=== PATIENT | female | born 1975 | race American Indian/Alaskan Native ===

== ENCOUNTER 2017-08-13 20:12 | Inpatient (IN) | payer OTHER ==
[2017-08-13] MEDS ORDERED: ASPIRIN PO ONE (20:22)
[2017-08-13 20:40] LABS: Hemoglobin 6.5 gm/dl (10.1-14.3); Mean Corpuscular HGB Conc 34 % (30-34); Mean Corpuscular Hemoglobin 34 pg (28-32); Mean Corpuscular Volume 102 fl (79-97); Platelet Count 133 K/mm3 (140-440)
[2017-08-13 20:44] LABS: Hematocrit 19.4 % (30.3-42.9); Red Cell Distribution Width 32.5 % (13.2-15.2)
[2017-08-13 20:52] LABS: BUN/Creatinine Ratio 9; Blood Urea Nitrogen 13 mg/dL (7-17); Calcium 7.9 mg/dL (8.4-10.2); Hemolysis Index 0
[2017-08-13] MEDS ORDERED: NACL 0.9% 500 ML 500 ML IV ONE (21:03)
--- NOTE | 2017-08-13 21:13 | Emergency Department Report ---
ED General Adult HPI - General Chief complaint: Dizziness Stated complaint: DIZZY,CHEST PAIN Time Seen by Provider: 08/13/17 20:51 Source: patient Mode of arrival: Ambulatory Limitations: No Limitations - History of Present Illness Initial comments: This is a 42-year-old female with history of alcohol use disorder who reports being dizzy and having syncopal episodes for the past several months. She also states that she feels very tired now and her friend noted that her eyes were very yellow and she has had dark urine and back pain. She admits to some nausea and vomiting but there is no blood in her vomitus. She states that she has a history of pancreatitis and hypertension. She also then reports that she has some chest pain as well. She admits to drinking alcohol today as well. -: month(s) (3 months) Location: abdomen Radiation: non-radiation Quality: aching Consistency: constant Improves with: none Worsens with: none - Related Data Home Medications Medication Instructions Recorded Confirmed Last Taken Lisinopril 40 mg PO DAILY 08/13/17 08/13/17 Unknown Allergies Allergy/AdvReac Type Severity Reaction Status Date / Time No Known Allergies Allergy Unverified 08/13/17 20:16 ED Review of Systems ROS: Stated complaint: DIZZY,CHEST PAIN Other details as noted in HPI Comment: All other systems reviewed and negative Constitutional: see HPI Eyes: as per HPI, other (jaundiced) ENT: as per HPI Respiratory: see HPI Cardiovascular: as per HPI Endocrine: see HPI Gastrointestinal: as per HPI Genitourinary: as per HPI Musculoskeletal: as per HPI Skin: as per HPI Neurological: as per HPI Psychiatric: as per HPI Hematological/Lymphatic: as per HPI ED Past Medical Hx - Past Medical History Hx Hypertension: Yes Additional medical history: Pancreatitis - Surgical History Additional Surgical History: tube tied, c sect - Social History Smoking Status: Current Every Day Smoker Substance Use Type: Alcohol - Medications Home Medications: Home Medications Medication Instructions Recorded Confirmed Last Taken Type Lisinopril 40 mg PO DAILY 08/13/17 08/13/17 Unknown History ED Physical Exam - General Limitations: No Limitations General appearance: alert, in distress - Head Head exam: Present: atraumatic - Eye Eye exam: Present: scleral icterus Pupils: Present: normal accommodation - Neck Neck exam: Present: normal inspection - Respiratory Respiratory exam: Present: normal lung sounds bilaterally. Absent: respiratory distress, wheezes, rales, rhonchi - Cardiovascular Cardiovascular Exam: Present: tachycardia, normal heart sounds - GI/Abdominal GI/Abdominal exam: Present: soft, tenderness (generalized mild), normal bowel sounds. Absent: guarding, rebound, rigid - Rectal Rectal exam: Present: deferred - Extremities Exam Extremities exam: Present: normal inspection. Absent: pedal edema - Back Exam Back exam: Present: normal inspection - Neurological Exam Neurological exam: Present: alert, oriented X3, CN II-XII intact - Psychiatric Psychiatric exam: Present: anxious - Skin Skin exam: Present: warm, dry, intact ED Course Vital Signs 08/13/17 08/13/17 08/13/17 20:16 22:36 23:38 Temperature 97.7 F 98.4 F 98.8 F Pulse Rate 106 H 80 82 Respiratory 16 20 20 Rate Blood Pressure 116/69 107/69 Blood Pressure 98/68 [Right] O2 Sat by Pulse 97 100 100 Oximetry 08/13/17 08/13/17 23:49 23:53 Temperature 98.8 F 98.8 F Pulse Rate 87 87 Respiratory 20 20 Rate Blood Pressure 99/64 99/64 Blood Pressure [Right] O2 Sat by Pulse 96 96 Oximetry - Reevaluation(s) Reevaluation #1: 08/13/17 22:24 The patient will require blood transfusion due to her hemoglobin is 6.4. Alcohol level was also elevated. In her urine drug screen cocaine and marijuana as positive. She has significant scleral icterus. Her LFTs are also elevated. The ammonia level is also elevated. T bilirubin is also elevated. Amylase lipase are currently pending. CT scan of the abdomen and pelvis has been done however the results are pending at this time. I did speak to the hospitalist and we will need to admit the patient. We also will go ahead and type and screen and transfused 2 units of packed RBCs into the patient. 08/13/17 22:26 08/14/17 00:[address] scan of the abdomen and pelvis does reveal acute on chronic pancreatitis , a large 3 cm in diameter gallstone nearly obstructing the gallbladder lumen, as well as a hepatic cyst, and likely chronic appendicitis with no acute process or inflammatory changes noted at this time but visualization of the appendix is suboptimal. Chronic pancreatitis is likely due to the chronic alcohol use disorder that the patient suffers from. With regards to her significant anemia, there does not appear to be insofar as we can tell at this point a gastrointestinal cause for her anemia. I discussed the case with the hospitalist, surgery will need to be consult to, the patient is currently receiving blood in the ER, and we will need to admit the patient to the hospital. ED Medical Decision Making - Lab Data Result diagrams: 08/13/17 20:27 08/13/17 20:27 Critical care attestation.: If time is entered above; I have spent that time in minutes in the direct care of this critically ill patient, excluding procedure time. ED Disposition Clinical Impression: Hepatitis, Polysubstance abuse, Jaundice, Hyperammonemia Anemia Qualifiers: Anemia type: other cause Other causes of anemia: other cause, not classified Qualified Code(s): D64.89 - Other specified anemias Liver failure Qualifiers: Liver failure chronicity: acute Hepatic coma status: without hepatic coma Qualified Code(s): K72.00 - Acute and subacute hepatic failure without coma Alcohol intoxication Qualifiers: Complication of substance-induced condition: with unspecified complication Qualified Code(s): F10.929 - Alcohol use, unspecified with intoxication, unspecified Pancreatitis Qualifiers: Chronicity: acute Pancreatitis type: alcohol induced Acute pancreatitis complication: unspecified Qualified Code(s): K85.20 - Alcohol induced acute pancreatitis without necrosis or infection Disposition: OP ADMIT IP TO THIS HOSP Is pt being admited?: Yes Does the pt Need Aspirin: No Condition: Stable Referrals: LORNE THOMAS MD [Primary Care Provider] - 3-5 Days
[2017-08-13 21:35] LABS: Amorphous Crystals,Urine Few; Bacteria,Urine 2+ /HPF (Negative); Bilirubin,Urine MOD (Negative); Blood,Urine NEG (Negative); Color,Urine Amber (Yellow); Mucus,Urine FEW /HPF; Protein,Urine <15 mg/dL mg/dL (Negative)
[2017-08-13 21:38] LABS: Ictotest,Urine Positive (Negative)
[2017-08-13 21:41] LABS: Amphetamine Screen,Urine PRESUMPTIVE NEGATIVE; Benzodiazepines Screen,Urine PRESUMPTIVE NEGATIVE; Methadone Screen,Urine PRESUMPTIVE NEGATIVE; Opiate Screen,Urine PRESUMPTIVE NEGATIVE
[2017-08-13 21:49] LABS: Albumin 2.1 g/dL (3.9-5)
[2017-08-13 21:52] LABS: Cannabinoid Screen,Urine PRESUMPTIVE POSITIVE; Cocaine Screen,Urine PRESUMPTIVE POSITIVE
[2017-08-13 22:05] LABS: Bilirubin,Direct 13.2 mg/dL (0-0.2)
[2017-08-13 22:49] LABS: Total Cells Counted 100
[2017-08-13 22:50] LABS: Anisocytosis 1+; Basophils % (Manual) 0 % (0.0-1.8); Hypochromasia 1+; Lipase 8 units/L (13-60); Macrocytosis 1+; Target Cells 1+
[2017-08-13 22:51] LABS: Platelet Estimate Consistent w Auto
[2017-08-13] MEDS ORDERED: ZOFRAN IV ONE (22:59)
[2017-08-13] MEDS ORDERED: MORPHINE IV ONE (22:59)
[2017-08-13 23:00] LABS: Hepatitis A Antibody IgM Non-Reactive (NonReactive); Hepatitis B Core IgM Non-Reactive (NonReactive); Hepatitis B Surface Antigen Non-Reactive (Negative); Hepatitis C Virus Antibody Non-Reactive (NonReactive)
[2017-08-13] MEDS ORDERED: ATIVAN IV ONE (23:02)
--- NOTE | 2017-08-13 23:26 | Cat Scan Report ---
FINAL REPORT PROCEDURE: CT ABDOMEN PELVIS WO CON TECHNIQUE: Computerized axial tomography of the abdomen and pelvis was performed without intravenous contrast. This study is performed without intravascular contrast material and its sensitivity for abdominal and pelvic pathology, including neoplasms, inflammation, abscess, free fluid, thrombosis, arterial dissection and infarction, is reduced compared with a contrast enhanced study. HISTORY: abd pain. nausea, vomiting, pancreatitis, etoh use COMPARISON: No prior studies are available for comparison. FINDINGS: Lower Lung bright: There is a vertically-oriented band of atelectasis in the right middle lobe anteriorly inferiorly and also in the lingula inferiorly anteriorly. Upper Abdomen: There is a large gallstone nearly filling the lumen of the gallbladder measuring up to 3 centimeters in greatest diameter. Gallbladder is otherwise unremarkable. There is a 2.8 centimeter low-density nodule in the right lobe of the liver superiorly laterally which appears represent a large hepatic cyst. The liver is otherwise unremarkable. No adrenal abnormalities are seen. Coarse calcifications are seen throughout the head body and tail the pancreas consistent with chronic pancreatitis. No pancreatic mass or pseudocyst is visualized. There is mild hazy increased density in the adipose tissue inferior to the pancreas suggesting edema related to acute pancreatitis. No pseudocyst is visualized. The spleen is not enlarged. Kidneys, Ureters and Urinary bladder: Kidneys ureters are unremarkable. Urinary bladder is only partially filled otherwise is unremarkable. Retroperitoneum: Atherosclerotic changes are seen in the abdominal aorta. No aneurysm is visualized. Nonspecific subcentimeter lymph nodes are seen in the retroperitoneum. No pathologically enlarged lymph nodes are identified. Bowel: No focal bowel loop abnormalities are identified. No evidence of bowel obstruction or free intraperitoneal gas. Small amount of ascites is collected in the lower pelvis posteriorly on the right. The appendix is suboptimally seen although appears to be located in the right mid pelvis laterally on image 137 series 3. An appendicolith appears to be present. This measures up to 8.5 millimeters in diameter. Small amount of ascites is collected in the lower pelvis on the right. Reproductive organs: Uterus and adnexa are unremarkable. Other: No acute bone abnormalities are identified. IMPRESSION: Very large gallstone nearly filling the gallbladder visualized as described. Large hepatic cyst is visualized. Extensive coarse calcifications project throughout the pancreas consistent with chronic pancreatitis. There is mild hazy increased density in the adipose tissue inferior to the pancreas suggesting edema related to acute pancreatitis. No pseudocyst is visualized. Small amount of ascites visualized, located in the lower pelvis posteriorly on the right. The appendix is suboptimally seen. There is an appendicolith visualized in the right mid pelvis laterally as within the lumen of the appendix. No definite inflammatory change seen in the appendix however the diameter is greater than expected for normal appendix. This may represent chronic appendicitis. Abscess and free air are not visualized.
[2017-08-14] MEDS ORDERED: MORPHINE IV PRN ×2 (00:53→15:28)
[2017-08-14] MEDS ORDERED: ZOFRAN IV PRN (00:53)
[2017-08-14] MEDS ORDERED: SODIUM CHLORIDE FLUSH SYRINGE 10 ML IV PRN (00:53)
[2017-08-14] MEDS ORDERED: TYLENOL PO PRN (00:53)
[2017-08-14 01:03] LABS: INR 1.33 (0.87-1.13)
[2017-08-14] MEDS ORDERED: ATIVAN IV PRN ×2 (01:03)
[2017-08-14 01:04] LABS: Partial Thromboplastin Time 38.3 Sec. (24.2-36.6)
--- NOTE | 2017-08-14 01:04 | History and Physical Report ---
History of Present Illness Date of examination: 08/14/17 History of present illness: 42-year-old woman with a history of high blood pressure, pancreatitis, alcohol abuse comes emergency room because her friend brought her here because her eyes and been yellow for the last 4 days. She also complains of abdominal pain which she described as pinching sensation, intermittent in nature, on the right cell along the last 4, radiating to the back, intensity 10/10, on relief with Tylenol. She noticed that her urine was dark when she arrived in the emergency room. Also complaining of dizziness, feeling tired. No chest pain Review of systems Constitutional: no weight loss, chills Ears, eyes, nose, mouth and throat: no nasal congestion, no nasal discharge, no sinus pressure, no vision change, no red eye. Neck: No neck pain or rigidity. Cardiovascular: no chest pain, palpitations Respiratory: No cough, shortness of breath Gastrointestinal: no hematochezia Genitourinary : no dysuria, frequency , no hematuria Musculoskeletal: no joint swelling or muscle ache Integumentary: no rash, no pruritis Neurological: no parathesias, no numbness, no focal weakness Endocrine: no cold or heat intolerance, no polyuria or polydipsia Hematologic/Lymphatic: no easy bruising, no easy bleeding, no gland swelling Allergic/Immunologic: no urticaria, no angioedema. PAST MEDICAL HISTORY: Hypertension, pancreatitis, alcohol abuse PAST SURGICAL HISTORY: SOCIAL HISTORY:She has cut down on drinking, no drink 1 beer a day, smoke quarter pack a day denies drugs FAMILY HISTORY: Hypertension Medications and Allergies Allergies Allergy/AdvReac Type Severity Reaction Status Date / Time No Known Allergies Allergy Unverified 08/13/17 20:16 Home Medications Medication Instructions Recorded Confirmed Last Taken Type Lisinopril 40 mg PO DAILY 08/13/17 08/13/17 Unknown History Active Meds: Active Medications Acetaminophen (Tylenol) 650 mg PO Q4H PRN PRN Reason: Pain MILD(1-3)/Fever >100.5/CARDENAS Sodium Chloride (Nacl 0.45% 1000 Ml) 1,000 mls @ 150 mls/hr IV DIRECT HARRIETT Morphine Sulfate (Morphine) 2 mg IV Q4H PRN PRN Reason: Pain, Moderate (4-6) Ondansetron HCl (Zofran) 4 mg IV Q4H PRN PRN Reason: Nausea And Vomiting Sodium Chloride (Sodium Chloride Flush Syringe 10 Ml) 10 ml IV BID HARRIETT Sodium Chloride (Sodium Chloride Flush Syringe 10 Ml) 10 ml IV PRN PRN PRN Reason: LINE FLUSH Exam - Physical Exam Narrative exam: Gen. appearance: Patient lying in bed, no apparent distress HEENT: Normocephalic, atraumatic, pupils equally round and reactive to light, extraocular movement intact, and no sclericterus,. No JVD or thyromegaly or nodule,neck supple, no carotid bruit ,mucous membranes moist, no exudate or erythema Heart: S1, S2, regular rate and rhythm Lungs: Clear to auscultation bilaterally, breathing comfortable Abdomen: Positive bowel sounds, tender in the epigastric area, nondistended, no organomegaly Extremity: No edema, cyanosis, clubbing Skin: No rash, nodules, warm, dry Neuro: Oriented 3, cranial nerves II-12 intact, speech is fluent, motor and sensory intact - Constitutional Vitals: Temp Pulse Resp BP Pulse Ox 98.6 F 85 22 93/60 98 08/14/17 00:23 08/14/17 00:23 08/14/17 00:23 08/14/17 00:23 08/14/17 00:23 Results - Labs CBC & Chem 7: 08/13/17 20:27 08/13/17 20:27 Labs: Abnormal lab results 08/13/17 08/13/17 08/13/17 Range/Units 20:27 20:27 20:27 RBC 1.90 L (3.65-5.03) M/mm3 Hgb 6.5 L (10.1-14.3) gm/dl Hct 19.4 L* (30.3-42.9) % MCV 102 H (79-97) fl MCH 34 H (28-32) pg RDW 32.5 H (13.2-15.2) % Plt Count 133 L (140-440) K/mm3 PT (12.2-14.9) Sec. INR (0.87-1.13) APTT (24.2-36.6) Sec. Sodium 136 L (137-145) mmol/L Carbon Dioxide 21 L (22-30) mmol/L Creatinine 1.5 H (0.7-1.2) mg/dL Glucose 125 H (65-100) mg/dL Calcium 7.9 L (8.4-10.2) mg/dL Total Bilirubin (0.1-1.2) mg/dL Direct Bilirubin (0-0.2) mg/dL AST (5-40) units/L ALT (7-56) units/L Alkaline Phosphatase (35-129) units/L Ammonia (25-60) umol/L Total Protein (6.3-8.2) g/dL Albumin (3.9-5) g/dL Lipase 8 L (13-60) units/L Plasma/Serum Alcohol (0-0.07) % Crossmatch 08/13/17 08/13/17 08/13/17 Range/Units 21:06 21:06 21:13 RBC (3.65-5.03) M/mm3 Hgb (10.1-14.3) gm/dl Hct (30.3-42.9) % MCV (79-97) fl MCH (28-32) pg RDW (13.2-15.2) % Plt Count (140-440) K/mm3 PT (12.2-14.9) Sec. INR (0.87-1.13) APTT (24.2-36.6) Sec. Sodium (137-145) mmol/L Carbon Dioxide (22-30) mmol/L Creatinine (0.7-1.2) mg/dL Glucose (65-100) mg/dL Calcium (8.4-10.2) mg/dL Total Bilirubin 18.90 H (0.1-1.2) mg/dL Direct Bilirubin 13.2 H (0-0.2) mg/dL AST 169 H (5-40) units/L ALT 77 H (7-56) units/L Alkaline Phosphatase 326 H (35-129) units/L Ammonia 77.0 H (25-60) umol/L Total Protein 5.7 L (6.3-8.2) g/dL Albumin 2.1 L (3.9-5) g/dL Lipase (13-60) units/L Plasma/Serum Alcohol (0-0.07) % Crossmatch See Detail 08/13/17 08/14/17 Range/Units 21:13 00:36 RBC (3.65-5.03) M/mm3 Hgb (10.1-14.3) gm/dl Hct (30.3-42.9) % MCV (79-97) fl MCH (28-32) pg RDW (13.2-15.2) % Plt Count (140-440) K/mm3 PT 17.2 H (12.2-14.9) Sec. INR 1.33 H (0.87-1.13) APTT 38.3 H (24.2-36.6) Sec. Sodium (137-145) mmol/L Carbon Dioxide (22-30) mmol/L Creatinine (0.7-1.2) mg/dL Glucose (65-100) mg/dL Calcium (8.4-10.2) mg/dL Total Bilirubin (0.1-1.2) mg/dL Direct Bilirubin (0-0.2) mg/dL AST (5-40) units/L ALT (7-56) units/L Alkaline Phosphatase (35-129) units/L Ammonia (25-60) umol/L Total Protein (6.3-8.2) g/dL Albumin (3.9-5) g/dL Lipase (13-60) units/L Plasma/Serum Alcohol 0.11 H (0-0.07) % Crossmatch - Imaging and Cardiology CT scan - abdomen: report reviewed CT scan - pelvis: report reviewed Assessment and Plan Assessment Gallstone Hyperbilirubinemia Symptomatic anemia Alcohol abuse Thrombocytopenia Plan Admit to medicine Start IV fluids, transfuse packed red blood cells Consults surgery, GI, case discussed with them Check hepatitis profile, fecal occult blood Obtain MRCP Start CIWA protocol with IV Ativan DVT prophylaxis
[2017-08-14 08:51] LABS: Creatine Kinase MB 2.1 ng/mL (0.0-4.0)
[2017-08-14] MEDS ORDERED: LOVENOX SUB-Q SCH (10:00)
[2017-08-14] MEDS: SODIUM CHLORIDE FLUSH SYRINGE 10 ML IV SCH ×2 (10:14→21:56)
--- NOTE | 2017-08-14 11:49 | Progress Note ---
Assessment and Plan Assessment and plan: Patient is a 42 yo woman with a history of htn and alcohol abuse with pancreatitis who presented to the ED with ams, syncope, dizziness, abd pains and yellow eyes. She was found to have etoh level of 0.11 and urine drug screen positive for cocaine and marijuana. CT abd/pelvis wo contrast IMPRESSION: Very large gallstone nearly filling the gallbladder visualized as described. Large hepatic cyst is visualized. Extensive coarse calcifications project throughout the pancreas consistent with chronic pancreatitis. There is mild hazy increased density in the adipose tissue inferior to the pancreas suggesting edema related to acute pancreatitis. No pseudocyst is visualized. Small amount of ascites visualized, located in the lower pelvis posteriorly on the right. The appendix is suboptimally seen. There is an appendicolith visualized in the right mid pelvis laterally as within the lumen of the appendix. No definite inflammatory change seen in the appendix however the diameter is greater than expected for normal appendix. This may represent chronic appendicitis. Abscess and free air are not visualized. Assessment -Acute toxic metabolic encephalopathy poa due to etoh: treat with CIWA -Gallstone: consulted GI -Hyperbilirubinemia: surgery already consulted -Symptomatic Acute anemia due to chronic liver disease: transfuse prbc -Alcohol abuse" counseling done, treat with CIWA protocol -Thrombocytopenia: related to etoh Plan Admit to medicine Start IV fluids, transfuse packed red blood cells Consults surgery, GI, case discussed with them Check hepatitis profile, fecal occult blood Obtain MRCP which is pending Start CIWA protocol with IV Ativan DVT prophylaxis CCT 32 minutes History Interval history: Patient was seen and examined. Follow-up on current diagnosis of abdominal pain which is still present. Overnight uneventful. Patient denies any chest pain, shortness breath, nausea/vomiting or severe headaches. Imaging, nursing note, chart, labs and old chart reviewed. Discussed with patient. Hospitalist Physical - Physical exam Narrative exam: GEN: Thin frail, NAD, AWAKE, ALERT, ORIENTATED 3 HEENT: NCAT, EOMI, PERRL, OP Clear NECK: supple, no adenopathy, no thyromegaly, no JVD CVS/HEART: RRR, NORMAL S1S2, pulses present bilaterally CHEST/LUNGS: CTA B, Symmetrical chest expansion, good air entry bilaterally GI/Abdomen: soft, nondistended, epigastric tenderness, good bowel sounds, no guarding or rebound /Bladder: no suprapubic tenderness, no CVA or paraspinal tenderness EXT/Skin: no c/c/e, no obvious rash MSK: FROM x 4 Neuro: CN 2-12 grossly intact, no new focal deficits Psych: with drawn - Constitutional Vitals: Temp Pulse Resp BP Pulse Ox 99.2 F 89 14 125/69 98 08/14/17 07:26 08/14/17 07:26 08/14/17 07:26 08/14/17 07:26 08/14/17 07:26 Results - Labs CBC & Chem 7: 08/13/17 20:27 08/13/17 20:27 Labs: Laboratory Last Values WBC 8.3 K/mm3 (4.5-11.0) 08/13/17 20: RBC 1.90 M/mm3 (3.65-5.03) L 08/13/17 20:27 Hgb 6.5 gm/dl (10.1-14.3) L 08/13/17 20:27 Hct 19.4 % (30.3-42.9) L* 08/13/17 20: MCV 102 fl (79-97) H 08/13/17 20:27 MCH 34 pg (28-32) H 08/13/17 20:27 MCHC 34 % (30-34) 08/13/17 20:27 RDW 32.5 % (13.2-15.2) H 08/13/17 20:27 Plt Count 133 K/mm3 (140-440) L 08/13/17 20:27 Lymph % (Auto) Baggage Agent 08/13/17 20:27 Lymph # Baggage Agent 08/13/17 20:27 Add Manual Diff Complete 08/13/17 20:27 Total Counted 100 08/13/17 20:27 Seg Neutrophils % Baggage Agent 08/13/17 20:27 Seg Neuts % (Manual) 70.0 % (40.0-70.0) 08/13/17 20:27 Band Neutrophils % 0 % 08/13/17 20:27 Lymphocytes % (Manual) 23.0 % (13.4-35.0) 08/13/17 20:27 Reactive Lymphs % (Man) 0 % 08/13/17 20:27 Monocytes % (Manual) 4.0 % (0.0-7.3) 08/13/17 20:27 Eosinophils % (Manual) 3.0 % (0.0-4.3) 08/13/17 20:27 Basophils % (Manual) 0 % (0.0-1.8) 08/13/17 20:27 Metamyelocytes % 0 % 08/13/17 20:27 Myelocytes % 0 % 08/13/17 20:27 Promyelocytes % 0 % 08/13/17 20:27 Blast Cells % 0 % 08/13/17 20: Nucleated RBC % Not Reportable 08/13/17 20: Seg Neutrophils # Man 5.8 K/mm3 (1.8-7.7) 08/13/17 20: Band Neutrophils # 0.0 K/mm3 08/13/17 20: Lymphocytes # (Manual) 1.9 K/mm3 (1.2-5.4) 08/13/17 20:27 Abs React Lymphs (Man) 0.0 K/mm3 08/13/17 20:27 Monocytes # (Manual) 0.3 K/mm3 (0.0-0.8) 08/13/17 20:27 Eosinophils # (Manual) 0.2 K/mm3 (0.0-0.4) 08/13/17 20:27 Basophils # (Manual) 0.0 K/mm3 (0.0-0.1) 08/13/17 20:27 Metamyelocytes # 0.0 K/mm3 08/13/17 20:27 Myelocytes # 0.0 K/mm3 08/13/17 20:27 Promyelocytes # 0.0 K/mm3 08/13/17 20:27 Blast Cells # 0.0 K/mm3 08/13/17 20:27 WBC Morphology Not Reportable 08/13/17 20:27 Hypersegmented Neuts Not Reportable 08/13/17 20:27 Hyposegmented Neuts Not Reportable 08/13/17 20:27 Hypogranular Neuts Not Reportable 08/13/17 20:27 Smudge Cells Not Reportable 08/13/17 20:27 Toxic Granulation Not Reportable 08/13/17 20:27 Toxic Vacuolation Not Reportable 08/13/17 20:27 Dohle Bodies Not Reportable 08/13/17 20:27 Pelger-Huet Anomaly Not Reportable 08/13/17 20:27 Roni Rods Not Reportable 08/13/17 20:27 Platelet Estimate Consistent w auto 08/13/17 20:27 Clumped Platelets Not Reportable 08/13/17 20:27 Plt Clumps, EDTA Not Reportable 08/13/17 20:27 Large Platelets Not Reportable 08/13/17 20:27 Giant Platelets Not Reportable 08/13/17 20:27 Platelet Satelliting Not Reportable 08/13/17 20:27 Plt Morphology Comment Not Reportable 08/13/17 20:27 RBC Morphology Not Reportable 08/13/17 20:27 Dimorphic RBCs Not Reportable 08/13/17 20:27 Polychromasia Not Reportable 08/13/17 20:27 Hypochromasia 1+ 08/13/17 20:27 Poikilocytosis Not Reportable 08/13/17 20:27 Anisocytosis 1+ 08/13/17 20:27 Microcytosis Not Reportable 08/13/17 20:27 Macrocytosis 1+ 08/13/17 20:27 Spherocytes Not Reportable 08/13/17 20:27 Pappenheimer Bodies Not Reportable 08/13/17 20:27 Sickle Cells Not Reportable 08/13/17 20:27 Target Cells 1+ 08/13/17 20:27 Tear Drop Cells Not Reportable 08/13/17 20:27 Ovalocytes Not Reportable 08/13/17 20:27 Helmet Cells Not Reportable 08/13/17 20:27 [place] Bodies Not Reportable 08/13/17 20:27 Ethel Rings Not Reportable 08/13/17 20:27 Glasco Cells Not Reportable 08/13/17 20:27 Bite Cells Not Reportable 08/13/17 20:27 Crenated Cell Not Reportable 08/13/17 20:27 Elliptocytes Not Reportable 08/13/17 20:27 Acanthocytes (Spur) Not Reportable 08/13/17 20:27 Rouleaux Not Reportable 08/13/17 20:27 Hemoglobin C Crystals Not Reportable 08/13/17 20:27 Schistocytes Not Reportable 08/13/17 20:27 Malaria parasites Not Reportable 08/13/17 20:27 Madi Bodies Not Reportable 08/13/17 20:27 Hem Pathologist Commnt No 08/13/17 20:27 PT 17.2 Sec. (12.2-14.9) H 08/14/17 00:36 INR 1.33 (0.87-1.13) H 08/14/17 00:36 APTT 38.3 Sec. (24.2-36.6) H 08/14/17 00:36 Sodium 136 mmol/L (137-145) L 08/13/17 20:27 Potassium 3.8 mmol/L (3.6-5.0) 08/13/17 20:27 Chloride 98.6 mmol/L (98-107) 08/13/17 20:27 Carbon Dioxide 21 mmol/L (22-30) L 08/13/17 20:27 Anion Gap 20 mmol/L 08/13/17 20:27 BUN 13 mg/dL (7-17) 08/13/17 20:27 Creatinine 1.5 mg/dL (0.7-1.2) H 08/13/17 20:27 Estimated GFR 46 ml/min 08/13/17 20:27 BUN/Creatinine Ratio 9 % 08/13/17 20:27 Glucose 125 mg/dL (65-100) H 08/13/17 20:27 Calcium 7.9 mg/dL (8.4-10.2) L 08/13/17 20:27 Total Bilirubin 18.90 mg/dL (0.1-1.2) H 08/13/17 21:13 Direct Bilirubin 13.2 mg/dL (0-0.2) H 08/13/17 21:13 Indirect Bilirubin 5.7 mg/dL 08/13/17 21:13 AST 169 units/L (5-40) H 08/13/17 21:13 ALT 77 units/L (7-56) H 08/13/17 21:13 Alkaline Phosphatase 326 units/L (35-129) H 08/13/17 21:13 Ammonia 77.0 umol/L (25-60) H 08/13/17 21:06 Total Creatine Kinase 71 units/L (30-135) 08/14/17 07:52 CK-MB (CK-2) 2.1 ng/mL (0.0-4.0) 08/14/17 07:52 CK-MB (CK-2) Rel Index 2.9 (0-4) 08/14/17 07:52 Troponin T < 0.010 ng/mL (0.00-0.029) 08/14/17 07:52 Total Protein 5.7 g/dL (6.3-8.2) L 08/13/17 21:13 Albumin 2.1 g/dL (3.9-5) L 08/13/17 21:13 Albumin/Globulin Ratio 0.6 % 08/13/17 21:13 Amylase 32 units/L (27-131) 08/13/17 20:27 Lipase 8 units/L (13-60) L 08/13/17 20:27 Urine Color Michaela (Yellow) 08/13/17 21:24 Urine Turbidity Clear (Clear) 08/13/17 21:24 Urine pH 6.0 (5.0-7.0) 08/13/17 21:24 Ur Specific [place] 1.013 (1.003-1.030) 08/13/17 21:24 Urine Protein <15 mg/dl mg/dL (Negative) 08/13/17 21:24 Urine Glucose (UA) Neg mg/dL (Negative) 08/13/17 21:24 Urine Ketones Neg mg/dL (Negative) 08/13/17 21:24 Urine Blood Neg (Negative) 08/13/17 21:24 Urine Nitrite Neg (Negative) 08/13/17 21:24 Urine Bilirubin Mod (Negative) 08/13/17 21:24 Urine Ictotest Positive (Negative) 08/13/17 21:24 Urine Urobilinogen 4.0 mg/dL (<2.0) 08/13/17 21:24 Ur Leukocyte Esterase Neg (Negative) 08/13/17 21:24 Urine WBC (Auto) 4.0 /HPF (0.0-6.0) 08/13/17 21:24 Urine RBC (Auto) 1.0 /HPF (0.0-6.0) 08/13/17 21:24 U Epithel Cells (Auto) 7.0 /HPF (0-13.0) 08/13/17 21:24 Urine Bacteria (Auto) 2+ /HPF (Negative) 08/13/17 21:24 Amorphous Crystals Few 08/13/17 21:24 Urine Mucus Few /HPF 08/13/17 21:24 Urine Opiates Screen Presumptive negative 08/13/17 21:24 Urine Methadone Screen Presumptive negative 08/13/17 21:24 Ur Barbiturates Screen Presumptive negative 08/13/17 21:24 Ur Phencyclidine Scrn Presumptive negative 08/13/17 21:24 Ur Amphetamines Screen Presumptive negative 08/13/17 21:24 U Benzodiazepines Scrn Presumptive negative 08/13/17 21:24 Urine Cocaine Screen Presumptive positive 08/13/17 21:24 U Marijuana (THC) Screen Presumptive positive 08/13/17 21:24 Drugs of Abuse Note Disclamer 08/13/17 21:24 Plasma/Serum Alcohol 0.11 % (0-0.07) H 08/13/17 21:13 Hepatitis A IgM Ab Non-reactive (NonReactive) 08/13/17 21:30 Hep Bs Antigen Non-reactive (Negative) 08/13/17 21:30 Hep B Core IgM Ab Non-reactive (NonReactive) 08/13/17 21:30 Hepatitis C Antibody Non-reactive (NonReactive) 08/13/17 21:30 Blood Type O POSITIVE 08/13/17 21:06 Antibody Screen Negative 08/13/17 21:06 Crossmatch See Detail 08/13/17 21:06
--- NOTE | 2017-08-14 11:56 | Gastroenterology Consultation ---
History of Present Illness - Reason for Consult Consult date: 08/14/17 Jaundice Requesting physician: SILVIA MATAMOROS - History of Present Illness The patient is a 42 yo female who came to the ER for jaundice. She has a known hx of EtOH abuse disorder, but has not been admitted here. Although she has signs of chronic pancreatitis on CT, she denies severe chronic abdominal pain. She was noted to have a very large GS in the GB on CT scan, but the CBD was not dilated, nor did there appear to be any ductal stones. She has had no N/V since admit to the floor, but is very sleepy. Of note, EtOH and substance abuse are active and she is not in rehab. Past History Past Medical History: other (Substance abuse; chronic pancreatitis (on CT)) Past Surgical History: Social history: smoking, alcohol abuse, other (Cocaine/MJ on UDS) Family history: other (No family hx of pancreatic disease) Medications and Allergies Allergies Allergy/AdvReac Type Severity Reaction Status Date / Time No Known Allergies Allergy Unverified 08/13/17 20:16 Home Medications Medication Instructions Recorded Confirmed Last Taken Type Lisinopril 40 mg PO DAILY 08/13/17 08/13/17 Unknown History Active Meds: Active Medications Acetaminophen (Tylenol) 650 mg PO Q4H PRN PRN Reason: Pain MILD(1-3)/Fever >100.5/CARDENAS Sodium Chloride (Nacl 0.45% 1000 Ml) 1,000 mls @ 150 mls/hr IV DIRECT HARRIETT Lorazepam (Ativan) 1 mg IV Q1HR PRN PRN Reason: CIWA-Ar 8-15 Last Admin: 08/14/17 04:51 Dose: 1 mg Lorazepam (Ativan) 2 mg IV Q1HR PRN PRN Reason: CIWA-Ar 16-25 Morphine Sulfate (Morphine) 2 mg IV Q4H PRN PRN Reason: Pain, Moderate (4-6) Multivitamins/Minerals (Theragran-M Tab) 1 each PO QDAY HARRIETT Ondansetron HCl (Zofran) 4 mg IV Q4H PRN PRN Reason: Nausea And Vomiting Pantoprazole Sodium (Protonix) 40 mg PO QDAY HARRIETT Sodium Chloride (Sodium Chloride Flush Syringe 10 Ml) 10 ml IV BID HARRIETT Sodium Chloride (Sodium Chloride Flush Syringe 10 Ml) 10 ml IV PRN PRN PRN Reason: LINE FLUSH I have reviewed and reconciled medications Review of Systems - Review of Systems All systems: negative (except as noted in the HPI.) Exam - Constitutional Vital Signs: Temp Pulse Resp BP Pulse Ox 99.2 F 89 14 125/69 98 08/14/17 07:26 08/14/17 07:26 08/14/17 07:26 08/14/17 07:26 08/14/17 07:26 General appearance: no acute distress, other (Somnolent) - EENT Eyes: PERRL, EOM intact ENT: hearing intact, clear oral mucosa - Neck Neck: supple, normal ROM - Respiratory Respiratory effort: normal Respiratory: bilateral: CTA - Cardiovascular Rhythm: regular Heart Sounds: Present: S1 & S2 Extremities: no ischemia, No edema - Gastrointestinal General gastrointestinal: Present: soft, non-tender, non-distended - Integumentary Integumentary: Present: clear, warm, dry - Neurologic Neurological: other (Somnolent but non-focal) - Psychiatric Psychiatric: intact judgment & insight, memory intact - Labs CBC & Chem 7: 08/13/17 20:27 08/13/17 20:27 Lab Results: Laboratory Results - last 24 hr 08/13/17 08/13/17 08/13/17 20:27 20:27 20:27 WBC 8.3 RBC 1.90 L Hgb 6.5 L Hct 19.4 L* MCV 102 H MCH 34 H MCHC 34 RDW 32.5 H Plt Count 133 L Lymph % (Auto) Acute Care Assistant Lymph # Acute Care Assistant Add Manual Diff Complete Total Counted 100 Seg Neutrophils % Acute Care Assistant Seg Neuts % (Manual) 70.0 Band Neutrophils % 0 Lymphocytes % (Manual) 23.0 Reactive Lymphs % (Man) 0 Monocytes % (Manual) 4.0 Eosinophils % (Manual) 3.0 Basophils % (Manual) 0 Metamyelocytes % 0 Myelocytes % 0 Promyelocytes % 0 Blast Cells % 0 Nucleated RBC % Not Reportable Seg Neutrophils # Man 5.8 Band Neutrophils # 0.0 Lymphocytes # (Manual) 1.9 Abs React Lymphs (Man) 0.0 Monocytes # (Manual) 0.3 Eosinophils # (Manual) 0.2 Basophils # (Manual) 0.0 Metamyelocytes # 0.0 Myelocytes # 0.0 Promyelocytes # 0.0 Blast Cells # 0.0 WBC Morphology Not Reportable Hypersegmented Neuts Not Reportable Hyposegmented Neuts Not Reportable Hypogranular Neuts Not Reportable Smudge Cells Not Reportable Toxic Granulation Not Reportable Toxic Vacuolation Not Reportable Dohle Bodies Not Reportable Pelger-Huet Anomaly Not Reportable Roni Rods Not Reportable Platelet Estimate Consistent w auto Clumped Platelets Not Reportable Plt Clumps, EDTA Not Reportable Large Platelets Not Reportable Giant Platelets Not Reportable Platelet Satelliting Not Reportable Plt Morphology Comment Not Reportable RBC Morphology Not Reportable Dimorphic RBCs Not Reportable Polychromasia Not Reportable Hypochromasia 1+ Poikilocytosis Not Reportable Anisocytosis 1+ Microcytosis Not Reportable Macrocytosis 1+ Spherocytes Not Reportable Pappenheimer Bodies Not Reportable Sickle Cells Not Reportable Target Cells 1+ Tear Drop Cells Not Reportable Ovalocytes Not Reportable Helmet Cells Not Reportable [place] Bodies Not Reportable Thompson Rings Not Reportable [place]eb[place] Cells Not Reportable Bite Cells Not Reportable Crenated Cell Not Reportable Elliptocytes Not Reportable Acanthocytes (Spur) Not Reportable Rouleaux Not Reportable Hemoglobin C Crystals Not Reportable Schistocytes Not Reportable Malaria parasites Not Reportable Madi Bodies Not Reportable Hem Pathologist Commnt No PT INR APTT Sodium 136 L Potassium 3.8 Chloride 98.6 Carbon Dioxide 21 L Anion Gap 20 BUN 13 Creatinine 1.5 H Estimated GFR 46 BUN/Creatinine Ratio 9 Glucose 125 H Calcium 7.9 L Total Bilirubin Direct Bilirubin Indirect Bilirubin AST ALT Alkaline Phosphatase Ammonia Total Creatine Kinase CK-MB (CK-2) CK-MB (CK-2) Rel Index Troponin T < 0.010 Total Protein Albumin Albumin/Globulin Ratio Amylase 32 Lipase 8 L Urine Color Urine Turbidity Urine pH Ur Specific [place] Urine Protein Urine Glucose (UA) Urine Ketones Urine Blood Urine Nitrite Urine Bilirubin Urine Ictotest Urine Urobilinogen Ur Leukocyte Esterase Urine WBC (Auto) Urine RBC (Auto) U Epithel Cells (Auto) Urine Bacteria (Auto) Amorphous Crystals Urine Mucus Urine Opiates Screen Urine Methadone Screen Ur Barbiturates Screen Ur Phencyclidine Scrn Ur Amphetamines Screen U Benzodiazepines Scrn Urine Cocaine Screen U Marijuana (THC) Screen Drugs of Abuse Note Plasma/Serum Alcohol Hepatitis A IgM Ab Hep Bs Antigen Hep B Core IgM Ab Hepatitis C Antibody Blood Type Antibody Screen Crossmatch 08/13/17 08/13/17 08/13/17 21:06 21:06 21:13 WBC RBC Hgb Hct MCV MCH MCHC RDW Plt Count Lymph % (Auto) Lymph # Add Manual Diff Total Counted Seg Neutrophils % Seg Neuts % (Manual) Band Neutrophils % Lymphocytes % (Manual) Reactive Lymphs % (Man) Monocytes % (Manual) Eosinophils % (Manual) Basophils % (Manual) Metamyelocytes % Myelocytes % Promyelocytes % Blast Cells % Nucleated RBC % Seg Neutrophils # Man Band Neutrophils # Lymphocytes # (Manual) Abs React Lymphs (Man) Monocytes # (Manual) Eosinophils # (Manual) Basophils # (Manual) Metamyelocytes # Myelocytes # Promyelocytes # Blast Cells # WBC Morphology Hypersegmented Neuts Hyposegmented Neuts Hypogranular Neuts Smudge Cells Toxic Granulation Toxic Vacuolation Dohle Bodies Pelger-Huet Anomaly Roni Rods Platelet Estimate Clumped Platelets Plt Clumps, EDTA Large Platelets Giant Platelets Platelet Satelliting Plt Morphology Comment RBC Morphology Dimorphic RBCs Polychromasia Hypochromasia Poikilocytosis Anisocytosis Microcytosis Macrocytosis Spherocytes Pappenheimer Bodies Sickle Cells Target Cells Tear Drop Cells Ovalocytes Helmet Cells [place] Bodies Thompson Rings [place] Cells Bite Cells Crenated Cell Elliptocytes Acanthocytes (Spur) Rouleaux Hemoglobin C Crystals Schistocytes Malaria parasites Madi Bodies Hem Pathologist Commnt PT INR APTT Sodium Potassium Chloride Carbon Dioxide Anion Gap BUN Creatinine Estimated GFR BUN/Creatinine Ratio Glucose Calcium Total Bilirubin 18.90 H Direct Bilirubin 13.2 H Indirect Bilirubin 5.7 AST 169 H ALT 77 H Alkaline Phosphatase 326 H Ammonia 77.0 H Total Creatine Kinase CK-MB (CK-2) CK-MB (CK-2) Rel Index Troponin T Total Protein 5.7 L Albumin 2.1 L Albumin/Globulin Ratio 0.6 Amylase Lipase Urine Color Urine Turbidity Urine pH Ur Specific [place] Urine Protein Urine Glucose (UA) Urine Ketones Urine Blood Urine Nitrite Urine Bilirubin Urine Ictotest Urine Urobilinogen Ur Leukocyte Esterase Urine WBC (Auto) Urine RBC (Auto) U Epithel Cells (Auto) Urine Bacteria (Auto) Amorphous Crystals Urine Mucus Urine Opiates Screen Urine Methadone Screen Ur Barbiturates Screen Ur Phencyclidine Scrn Ur Amphetamines Screen U Benzodiazepines Scrn Urine Cocaine Screen U Marijuana (THC) Screen Drugs of Abuse Note Plasma/Serum Alcohol Hepatitis A IgM Ab Hep Bs Antigen Hep B Core IgM Ab Hepatitis C Antibody Blood Type O POSITIVE Antibody Screen Negative Crossmatch See Detail 08/13/17 08/13/17 08/13/17 21:13 21:24 21:24 WBC RBC Hgb Hct MCV MCH MCHC RDW Plt Count Lymph % (Auto) Lymph # Add Manual Diff Total Counted Seg Neutrophils % Seg Neuts % (Manual) Band Neutrophils % Lymphocytes % (Manual) Reactive Lymphs % (Man) Monocytes % (Manual) Eosinophils % (Manual) Basophils % (Manual) Metamyelocytes % Myelocytes % Promyelocytes % Blast Cells % Nucleated RBC % Seg Neutrophils # Man Band Neutrophils # Lymphocytes # (Manual) Abs React Lymphs (Man) Monocytes # (Manual) Eosinophils # (Manual) Basophils # (Manual) Metamyelocytes # Myelocytes # Promyelocytes # Blast Cells # WBC Morphology Hypersegmented Neuts Hyposegmented Neuts Hypogranular Neuts Smudge Cells Toxic Granulation Toxic Vacuolation Dohle Bodies Pelger-Huet Anomaly Roni Rods Platelet Estimate Clumped Platelets Plt Clumps, EDTA Large Platelets Giant Platelets Platelet Satelliting Plt Morphology Comment RBC Morphology Dimorphic RBCs Polychromasia Hypochromasia Poikilocytosis Anisocytosis Microcytosis Macrocytosis Spherocytes Pappenheimer Bodies Sickle Cells Target Cells Tear Drop Cells Ovalocytes Helmet Cells [place] Bodies Thompson Rings [place] Cells Bite Cells Crenated Cell Elliptocytes Acanthocytes (Spur) Rouleaux Hemoglobin C Crystals Schistocytes Malaria parasites Madi Bodies Hem Pathologist Commnt PT INR APTT Sodium Potassium Chloride Carbon Dioxide Anion Gap BUN Creatinine Estimated GFR BUN/Creatinine Ratio Glucose Calcium Total Bilirubin Direct Bilirubin Indirect Bilirubin AST ALT Alkaline Phosphatase Ammonia Total Creatine Kinase CK-MB (CK-2) CK-MB (CK-2) Rel Index Troponin T Total Protein Albumin Albumin/Globulin Ratio Amylase Lipase Urine Color Michaela Urine Turbidity Clear Urine pH 6.0 Ur Specific [place] 1.013 Urine Protein <15 mg/dl Urine Glucose (UA) Neg Urine Ketones Neg Urine Blood Neg Urine Nitrite Neg Urine Bilirubin Mod Urine Ictotest Positive Urine Urobilinogen 4.0 Ur Leukocyte Esterase Neg Urine WBC (Auto) 4.0 Urine RBC (Auto) 1.0 U Epithel Cells (Auto) 7.0 Urine Bacteria (Auto) 2+ Amorphous Crystals Few Urine Mucus Few Urine Opiates Screen Presumptive negative Urine Methadone Screen Presumptive negative Ur Barbiturates Screen Presumptive negative Ur Phencyclidine Scrn Presumptive negative Ur Amphetamines Screen Presumptive negative U Benzodiazepines Scrn Presumptive negative Urine Cocaine Screen Presumptive positive U Marijuana (THC) Screen Presumptive positive Drugs of Abuse Note Disclamer Plasma/Serum Alcohol 0.11 H Hepatitis A IgM Ab Hep Bs Antigen Hep B Core IgM Ab Hepatitis C Antibody Blood Type Antibody Screen Crossmatch 08/13/17 08/13/17 08/14/17 21:30 23:14 00:36 WBC RBC Hgb Hct MCV MCH MCHC RDW Plt Count Lymph % (Auto) Lymph # Add Manual Diff Total Counted Seg Neutrophils % Seg Neuts % (Manual) Band Neutrophils % Lymphocytes % (Manual) Reactive Lymphs % (Man) Monocytes % (Manual) Eosinophils % (Manual) Basophils % (Manual) Metamyelocytes % Myelocytes % Promyelocytes % Blast Cells % Nucleated RBC % Seg Neutrophils # Man Band Neutrophils # Lymphocytes # (Manual) Abs React Lymphs (Man) Monocytes # (Manual) Eosinophils # (Manual) Basophils # (Manual) Metamyelocytes # Myelocytes # Promyelocytes # Blast Cells # WBC Morphology Hypersegmented Neuts Hyposegmented Neuts Hypogranular Neuts Smudge Cells Toxic Granulation Toxic Vacuolation Dohle Bodies Pelger-Huet Anomaly Roni Rods Platelet Estimate Clumped Platelets Plt Clumps, EDTA Large Platelets Giant Platelets Platelet Satelliting Plt Morphology Comment RBC Morphology Dimorphic RBCs Polychromasia Hypochromasia Poikilocytosis Anisocytosis Microcytosis Macrocytosis Spherocytes Pappenheimer Bodies Sickle Cells Target Cells Tear Drop Cells Ovalocytes Helmet Cells [place] Bodies Thompson Rings Esteban Cells Bite Cells Crenated Cell Elliptocytes Acanthocytes (Spur) Rouleaux Hemoglobin C Crystals Schistocytes Malaria parasites Madi Bodies Hem Pathologist Commnt PT 17.2 H INR 1.33 H APTT 38.3 H Sodium Potassium Chloride Carbon Dioxide Anion Gap BUN Creatinine Estimated GFR BUN/Creatinine Ratio Glucose Calcium Total Bilirubin Direct Bilirubin Indirect Bilirubin AST ALT Alkaline Phosphatase Ammonia Total Creatine Kinase CK-MB (CK-2) CK-MB (CK-2) Rel Index Troponin T < 0.010 Total Protein Albumin Albumin/Globulin Ratio Amylase Lipase Urine Color Urine Turbidity Urine pH Ur Specific [place] Urine Protein Urine Glucose (UA) Urine Ketones Urine Blood Urine Nitrite Urine Bilirubin Urine Ictotest Urine Urobilinogen Ur Leukocyte Esterase Urine WBC (Auto) Urine RBC (Auto) U Epithel Cells (Auto) Urine Bacteria (Auto) Amorphous Crystals Urine Mucus Urine Opiates Screen Urine Methadone Screen Ur Barbiturates Screen Ur Phencyclidine Scrn Ur Amphetamines Screen U Benzodiazepines Scrn Urine Cocaine Screen U Marijuana (THC) Screen Drugs of Abuse Note Plasma/Serum Alcohol Hepatitis A IgM Ab Non-reactive Hep Bs Antigen Non-reactive Hep B Core IgM Ab Non-reactive Hepatitis C Antibody Non-reactive Blood Type Antibody Screen Crossmatch 08/14/17 07:52 WBC RBC Hgb Hct MCV MCH MCHC RDW Plt Count Lymph % (Auto) Lymph # Add Manual Diff Total Counted Seg Neutrophils % Seg Neuts % (Manual) Band Neutrophils % Lymphocytes % (Manual) Reactive Lymphs % (Man) Monocytes % (Manual) Eosinophils % (Manual) Basophils % (Manual) Metamyelocytes % Myelocytes % Promyelocytes % Blast Cells % Nucleated RBC % Seg Neutrophils # Man Band Neutrophils # Lymphocytes # (Manual) Abs React Lymphs (Man) Monocytes # (Manual) Eosinophils # (Manual) Basophils # (Manual) Metamyelocytes # Myelocytes # Promyelocytes # Blast Cells # WBC Morphology Hypersegmented Neuts Hyposegmented Neuts Hypogranular Neuts Smudge Cells Toxic Granulation Toxic Vacuolation Dohle Bodies Pelger-Huet Anomaly Roni Rods Platelet Estimate Clumped Platelets Plt Clumps, EDTA Large Platelets Giant Platelets Platelet Satelliting Plt Morphology Comment RBC Morphology Dimorphic RBCs Polychromasia Hypochromasia Poikilocytosis Anisocytosis Microcytosis Macrocytosis Spherocytes Pappenheimer Bodies Sickle Cells Target Cells Tear Drop Cells Ovalocytes Helmet Cells [place] Bodies Thompson Rings [place] Cells Bite Cells Crenated Cell Elliptocytes Acanthocytes (Spur) Rouleaux Hemoglobin C Crystals Schistocytes Malaria parasites Madi Bodies Hem Pathologist Commnt PT INR APTT Sodium Potassium Chloride Carbon Dioxide Anion Gap BUN Creatinine Estimated GFR BUN/Creatinine Ratio Glucose Calcium Total Bilirubin Direct Bilirubin Indirect Bilirubin AST ALT Alkaline Phosphatase Ammonia Total Creatine Kinase 71 CK-MB (CK-2) 2.1 CK-MB (CK-2) Rel Index 2.9 Troponin T < 0.010 Total Protein Albumin Albumin/Globulin Ratio Amylase Lipase Urine Color Urine Turbidity Urine pH Ur Specific [place] Urine Protein Urine Glucose (UA) Urine Ketones Urine Blood Urine Nitrite Urine Bilirubin Urine Ictotest Urine Urobilinogen Ur Leukocyte Esterase Urine WBC (Auto) Urine RBC (Auto) U Epithel Cells (Auto) Urine Bacteria (Auto) Amorphous Crystals Urine Mucus Urine Opiates Screen Urine Methadone Screen Ur Barbiturates Screen Ur Phencyclidine Scrn Ur Amphetamines Screen U Benzodiazepines Scrn Urine Cocaine Screen U Marijuana (THC) Screen Drugs of Abuse Note Plasma/Serum Alcohol Hepatitis A IgM Ab Hep Bs Antigen Hep B Core IgM Ab Hepatitis C Antibody Blood Type Antibody Screen Crossmatch Assessment and Plan - Patient Problems (1) Gallstone Current Visit: Yes Status: Acute Plan to address problem: - Large GS, but MRCP (prelim) shows no CBD obstruction. - Given acute liver disease with chronic pancreatitis, would not recommend surgery for 6-8 weeks at least (in the absence of acute cholecystitis) to avoid complications. (2) Jaundice Current Visit: Yes Status: Acute Plan to address problem: - Jaundice with mild transaminitis and ascites (mild) on CT: likely acute alcoholic hepatitis. - Continue supportive care with MVI, protonix, CIWA protocol. - Abstinence encouraged. - Patient is not a candidate for liver transplant evaluation. - Would trend labs for 24 hours before deciding re: steroids x 1 month ( especially with cocaine use and potential for severe HTN). - Does meet criteria for either prednisone or trental should liver tests trend upwards. - OK to give full liquid diet and advance as tolerated as no signs of cholecystitis or acute pancreatitis. - OK to d/c home tomorrow if LFTs trend downwards. (3) Polysubstance abuse Current Visit: Yes Status: Acute Plan to address problem: - EtOH, cocaine, MJ. - Patient on MVI and CIWA protocol. - Abstinence encouraged; patient should enroll in NA/AA.
[2017-08-14] MEDS: THERAGRAN-M Tab PO SCH (18:07)
[2017-08-14] MEDS: PROTONIX PO SCH (18:08)
--- NOTE | 2017-08-14 18:56 | Consultation ---
HISTORY OF PRESENT ILLNESS: I was called by Dr. Maribel Del Angel to see this lady. She is a 42-year-old black female. She came to the ER because of severe jaundice. Her bilirubin was in the range of 19. She gives a history of ethanol abuse and she was not admitted here in the past. There is questionable picture of chronic pancreatitis seen on the CAT scan. She was told to have a large gallstone in the gallbladder. The CAT scan showed loss of some of the gallbladder. There is questionable low density nodule in the right lobe of the liver that represents a hepatic cyst. The pancreas showed a finding consistent with chronic pancreatitis. There is no mass in the pancreas. I could not get any specific information on her. She is very sleepy. She is barely arousable. Allergic reaction is unknown. I read the note from Dr. Segun Hayes, which denies that this to continue observation, that we may give her some liquids. She had an MRI the report is not archived. PHYSICAL EXAMINATION: GENERAL: Showed a very sleepy black female. She is in no distress, very sleepy, I barely was able to communicate with them. HEAD AND NECK: Negative. NECK: Supple. CHEST: Essentially clear. HEART: Sound normal. ABDOMEN: Protuberant, soft. There is moderate tenderness in the right upper quadrant area and in the epigastric area. EXTREMITIES: Showed no significant edema. IMPRESSION AND PLAN: Abdominal pain? resolving with a large stone in the gallbladder area. No dilated common bile duct, a very elevated bilirubin of 8 of 19 and evidence of pancreatic stranding. We will see how things would be by tomorrow. I could not pinpoint her family, I would like talk to them. I left a message with the nurse to call me when they come and we will go from there. JOB# [id number] RBK/NTS
[2017-08-15] MEDS: NACL 0.45% 1000 ML 1,000 ML IV SCH ×3 (05:39→20:22)
[2017-08-15 06:25] LABS: Hematocrit 24.4 % (30.3-42.9); Hemoglobin 8.5 gm/dl (10.1-14.3); Mean Corpuscular HGB Conc 35 % (30-34); Mean Corpuscular Hemoglobin 34 pg (28-32); Mean Corpuscular Volume 98 fl (79-97); Platelet Count 108 K/mm3 (140-440); Red Blood Count 2.49 M/mm3 (3.65-5.03)
[2017-08-15 07:17] LABS: Band Neutrophils # (Manual) 0.3 K/mm3; Basophils % (Manual) 0 % (0.0-1.8); Eosinophils % (Manual) 0 % (0.0-4.3); Myelocytes # (Manual) 0.1 K/mm3; Total Cells Counted 100
[2017-08-15 07:18] LABS: Anisocytosis 1+; Poikilocytosis 1+
[2017-08-15 07:19] LABS: Burr Cells Few; Platelet Estimate Appears Decreased; Stomatocytes Few; Target Cells 1+
--- NOTE | 2017-08-15 08:37 | Magnetic Resonance Report ---
MR ABDOMEN MRCP History: Elevated bilirubin. Abdominal pain. Pancreatitis. Technique: Multiple T1 and T2-weighted images without IV gadolinium. Thin and thick slab MRCP images. Comparison: CT abdomen pelvis without contrast performed 08/13/17. Findings: The liver is normal size and contour. Mild to moderate diffuse fatty infiltration of the liver is suspected. A 3.0 cm cyst in the right hepatic lobe is noted. No suspicious liver mass is detected. The portal venous system and hepatic veins are patent. The IVC is patent. There a few tiny stones in the gallbladder. The gallbladder it is not dilated, however, there is marked gallbladder wall edema measuring up to 7 mm in thickness. No pericholecystic fluid. The MRCP images demonstrate normal intrahepatic biliary ducts and common bile duct. No choledocholithiasis or common bile duct stricture is identified. The CBD measures less than 5 mm. The pancreatic duct is mildly irregular and dilated distally. There is evidence for acute on chronic pancreatitis on CT. The spleen is normal size and signal measuring 9.8 cm. No varicosities are identified. There is trace perihepatic and perisplenic ascites. The kidneys, adrenal glands and visualized ureters are unremarkable. Mild fecal retention is suspected in the colon. Otherwise, the GI system is within normal limits on MR. No evidence for bulky adenopathy or abscess. Perhaps mild peripancreatic telemetry changes are identified. IMPRESSION: Cholelithiasis with no evidence for acute cholecystitis. There is marked gallbladder wall edema which may be secondary to liver disease. No evidence for choledocholithiasis. The pancreatic duct is irregular and mildly dilated in the pancreatic tail which is consistent with acute on chronic pancreatitis. Hepatic steatosis. Trace ascites.
[2017-08-15] MEDS ORDERED: ZOSYN/NS 3.375GM/50ML 3.375 GM/50 ML BAG IV SCH (09:00)
[2017-08-15] MEDS: THERAGRAN-M Tab PO SCH (09:31)
[2017-08-15] MEDS: PROTONIX PO SCH (09:31)
[2017-08-15] MEDS: MORPHINE IV PRN ×2 (09:31→18:09)
[2017-08-15] MEDS: ZOSYN/NS 4.5GM/100ML 4.5 GM/100 ML VIAL IV SCH (10:04)
[2017-08-15] MEDS: SODIUM CHLORIDE FLUSH SYRINGE 10 ML IV SCH (10:06)
--- NOTE | 2017-08-15 15:14 | Progress Note ---
Subjective Narrative: alert and responsive , still jaundiced , abd soft and bwnign no masses felt . lengty talk with Mom and sister as to the precarious condition of the Pt . pt admitted to taking heroin as well . Talked to Dr Ruggiero as to the condition , Pt was multiple times to [facility] . dr Ruggiero will arrange for transfer , will see PRN , Objective Vital Signs - 12hr 08/15/17 08/15/17 08/15/17 07:15 09:31 10:01 Temperature 99.1 F Pulse Rate 102 H Respiratory 24 20 20 Rate Blood Pressure 113/73 Blood Pressure [Right] O2 Sat by Pulse 99 Oximetry 08/15/17 14:47 Temperature 98.8 F Pulse Rate 77 Respiratory 18 Rate Blood Pressure Blood Pressure 109/82 [Right] O2 Sat by Pulse 99 Oximetry - Labs 08/15/17 05:34 08/13/17 20:27
--- NOTE | 2017-08-15 15:35 | Gastroenterology Progress Note ---
Assessment and Plan (1) Gallstone Current Visit: Yes Status: Acute Plan to address problem: - Large GS, but MRCP negative for CBD obstruction. - Given acute liver disease with chronic pancreatitis, would not recommend surgery for 6-8 weeks at least (in the absence of acute cholecystitis) to avoid complications. -surgery following with recommendations given to transfer pt to [place] (2) Jaundice Current Visit: Yes Status: Acute Plan to address problem: - Jaundice with mild transaminitis and ascites (mild) on CT: likely acute alcoholic hepatitis. - Continue supportive care with MVI, protonix, CIWA protocol. - Abstinence encouraged. - Patient is not a candidate for liver transplant evaluation. - Would trend labs for 24 hours before deciding re: steroids x 1 month ( especially with cocaine use and potential for severe HTN). - Does meet criteria for either prednisone or trental should liver tests trend upwards. - OK to give full liquid diet and advance as tolerated as no signs of cholecystitis or acute pancreatitis. - will order repeat labs today-continue to trend -continue supportive care (3) Polysubstance abuse Current Visit: Yes Status: Acute Plan to address problem: - EtOH, cocaine, MJ. - Patient on MVI and CIWA protocol. - Abstinence encouraged; patient should enroll in NA/AA. Subjective Date of service: 08/15/17 Principal diagnosis: elevated bili Interval history: No acute events overnight. Denies abd pain or N/V. Tolerating diet. No signs of active bleeding. Objective - Constitutional Vitals: Temp Pulse Resp BP Pulse Ox 98.8 F 77 18 109/82 99 08/15/17 14:47 08/15/17 14:47 08/15/17 14:47 08/15/17 14:47 08/15/17 14:47 General appearance: no acute distress, other (somnolent) - EENT Eyes: scleral icterus - Respiratory Respiratory: bilateral: CTA - Cardiovascular Rhythm: regular Heart Sounds: Present: S1 & S2 - Gastrointestinal General gastrointestinal: Present: soft, non-tender, non-distended, normal bowel sounds - Labs CBC & Chem 7: 08/15/17 05:34 08/13/17 20:27 Labs: Laboratory Results - last 24 hr 08/15/17 05:34 WBC 7.5 RBC 2.49 L Hgb 8.5 L Hct 24.4 L MCV 98 H MCH 34 H MCHC 35 H RDW 26.0 H Plt Count 108 L Add Manual Diff Complete Total Counted 100 Seg Neuts % (Manual) 89.0 H Band Neutrophils % 4.0 Lymphocytes % (Manual) 5.0 L Reactive Lymphs % (Man) 0 Monocytes % (Manual) 1.0 Eosinophils % (Manual) 0 Basophils % (Manual) 0 Metamyelocytes % 0 Myelocytes % 1.0 Promyelocytes % 0 Blast Cells % 0 Nucleated RBC % Not Reportable Seg Neutrophils # Man 6.7 Band Neutrophils # 0.3 Lymphocytes # (Manual) 0.4 L Abs React Lymphs (Man) 0.0 Monocytes # (Manual) 0.1 Eosinophils # (Manual) 0.0 Basophils # (Manual) 0.0 Metamyelocytes # 0.0 Myelocytes # 0.1 Promyelocytes # 0.0 Blast Cells # 0.0 WBC Morphology Not Reportable Hypersegmented Neuts Not Reportable Hyposegmented Neuts Not Reportable Hypogranular Neuts Not Reportable Smudge Cells Not Reportable Toxic Granulation Not Reportable Toxic Vacuolation Not Reportable Dohle Bodies Not Reportable Pelger-Huet Anomaly Not Reportable Roni Rods Not Reportable Platelet Estimate Appears decreased Clumped Platelets Not Reportable Plt Clumps, EDTA Not Reportable Large Platelets Not Reportable Giant Platelets Not Reportable Platelet Satelliting Not Reportable Plt Morphology Comment Not Reportable RBC Morphology Not Reportable Dimorphic RBCs Not Reportable Polychromasia 1+ Hypochromasia Not Reportable Poikilocytosis 1+ Anisocytosis 1+ Microcytosis Not Reportable Macrocytosis Not Reportable Spherocytes Not Reportable Pappenheimer Bodies Not Reportable Sickle Cells Not Reportable Target Cells 1+ Tear Drop Cells Not Reportable Ovalocytes Not Reportable Stomatocytes Few Helmet Cells Not Reportable [place] Bodies Not Reportable [place] Rings Not Reportable [place] Cells Few Bite Cells Not Reportable Crenated Cell Not Reportable Elliptocytes Not Reportable Acanthocytes (Spur) Not Reportable Rouleaux Not Reportable Hemoglobin C Crystals Not Reportable Schistocytes Not Reportable Malaria parasites Not Reportable Madi Bodies Not Reportable Hem Pathologist Commnt No
--- NOTE | 2017-08-15 15:59 | Progress Note ---
Assessment and Plan Assessment and plan: Patient is a 42 yo woman with a history of htn, alcohol abuse with pancreatitis who presented to the ED with ams, syncope, dizziness, abd pains and yellow eyes. She was found to have etoh level of 0.11 and urine drug screen positive for cocaine and marijuana. CT abd/pelvis wo contrast IMPRESSION: Very large gallstone nearly filling the gallbladder visualized as described. Large hepatic cyst is visualized. Extensive coarse calcifications project throughout the pancreas consistent with chronic pancreatitis. There is mild hazy increased density in the adipose tissue inferior to the pancreas suggesting edema related to acute pancreatitis. No pseudocyst is visualized. Small amount of ascites visualized, located in the lower pelvis posteriorly on the right. The appendix is suboptimally seen. There is an appendicolith visualized in the right mid pelvis laterally as within the lumen of the appendix. No definite inflammatory change seen in the appendix however the diameter is greater than expected for normal appendix. This may represent chronic appendicitis. Abscess and free air are not visualized. 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 -Polysubstance drug abuse, pt is in denial: counseling done -Gallstone: consulted GI -Hyperbilirubinemia: surgery already consulted, -Acute on chronic anemia due to chronic liver disease: transfuse prbc -Alcohol abuse with intoxication: counseling done, treat with CIWA protocol -Thrombocytopenia: related to etoh liver disease d/w Dr. Miller, he wants her transferred to [place]. I explained to him that pt is not a transplant candidate at this time but he states that she is known to the [facility] system, so I called [place] transfer center at [phone], spoke with Kendra, no beds at [place]; therefore, unable to transfer History Interval history: Patient was seen and examined. Follow-up on current diagnosis of abdominal pain which is still present. Overnight uneventful. Patient denies any chest pain, shortness breath, nausea/vomiting or severe headaches. Imaging, nursing note, chart, labs and old chart reviewed. Discussed with patient. Hospitalist Physical - Physical exam Narrative exam: GEN: Thin frail, NAD, AWAKE, ALERT, ORIENTATED 3 HEENT: NCAT, EOMI, PERRL, OP Clear NECK: supple, no adenopathy, no thyromegaly, no JVD CVS/HEART: RRR, NORMAL S1S2, pulses present bilaterally CHEST/LUNGS: CTA B, Symmetrical chest expansion, good air entry bilaterally GI/Abdomen: soft, nondistended, epigastric tenderness, good bowel sounds, no guarding or rebound /Bladder: no suprapubic tenderness, no CVA or paraspinal tenderness EXT/Skin: no c/c/e, no obvious rash MSK: FROM x 4 Neuro: CN 2-12 grossly intact, no new focal deficits Psych: with drawn - Constitutional Vitals: Temp Pulse Resp BP Pulse Ox 98.8 F 77 18 109/82 99 08/15/17 14:47 08/15/17 14:47 08/15/17 14:47 08/15/17 14:47 08/15/17 14:47 Results - Labs CBC & Chem 7: 08/15/17 05:34 08/13/17 20:27 Labs: Laboratory Last Values WBC 7.5 K/mm3 (4.5-11.0) 08/15/17 05:34 RBC 2.49 M/mm3 (3.65-5.03) L 08/15/17 05:34 Hgb 8.5 gm/dl (10.1-14.3) L 08/15/17 05:34 Hct 24.4 % (30.3-42.9) L 08/15/17 05:34 MCV 98 fl (79-97) H 08/15/17 05:34 MCH 34 pg (28-32) H 08/15/17 05:34 MCHC 35 % (30-34) H 08/15/17 05:34 RDW 26.0 % (13.2-15.2) H 08/15/17 05:34 Plt Count 108 K/mm3 (140-440) L 08/15/17 05:34 Lymph % (Auto) Fishing Tool Operator 08/13/17 20:27 Lymph # Fishing Tool Operator 08/13/17 20:27 Add Manual Diff Complete 08/15/17 05:34 Total Counted 100 08/15/17 05:34 Seg Neutrophils % Fishing Tool Operator 08/13/17 20:27 Seg Neuts % (Manual) 89.0 % (40.0-70.0) H 08/15/17 05:34 Band Neutrophils % 4.0 % 08/15/17 05:34 Lymphocytes % (Manual) 5.0 % (13.4-35.0) L 08/15/17 05:34 Reactive Lymphs % (Man) 0 % 08/15/17 05:34 Monocytes % (Manual) 1.0 % (0.0-7.3) 08/15/17 05:34 Eosinophils % (Manual) 0 % (0.0-4.3) 08/15/17 05:34 Basophils % (Manual) 0 % (0.0-1.8) 08/15/17 05:34 Metamyelocytes % 0 % 08/15/17 05:34 Myelocytes % 1.0 % 08/15/17 05:34 Promyelocytes % 0 % 08/15/17 05:34 Blast Cells % 0 % 08/15/17 05:34 Nucleated RBC % Not Reportable 08/15/17 05:34 Seg Neutrophils # Man 6.7 K/mm3 (1.8-7.7) 08/15/17 05:34 Band Neutrophils # 0.3 K/mm3 08/15/17 05:34 Lymphocytes # (Manual) 0.4 K/mm3 (1.2-5.4) L 08/15/17 05:34 Abs React Lymphs (Man) 0.0 K/mm3 08/15/17 05:34 Monocytes # (Manual) 0.1 K/mm3 (0.0-0.8) 08/15/17 05:34 Eosinophils # (Manual) 0.0 K/mm3 (0.0-0.4) 08/15/17 05:34 Basophils # (Manual) 0.0 K/mm3 (0.0-0.1) 08/15/17 05:34 Metamyelocytes # 0.0 K/mm3 08/15/17 05:34 Myelocytes # 0.1 K/mm3 08/15/17 05:34 Promyelocytes # 0.0 K/mm3 08/15/17 05:34 Blast Cells # 0.0 K/mm3 08/15/17 05:34 WBC Morphology Not Reportable 08/15/17 05:34 Hypersegmented Neuts Not Reportable 08/15/17 05:34 Hyposegmented Neuts Not Reportable 08/15/17 05:34 Hypogranular Neuts Not Reportable 08/15/17 05:34 Smudge Cells Not Reportable 08/15/17 05:34 Toxic Granulation Not Reportable 08/15/17 05:34 Toxic Vacuolation Not Reportable 08/15/17 05:34 Dohle Bodies Not Reportable 08/15/17 05:34 Pelger-Huet Anomaly Not Reportable 08/15/17 05:34 Roni Rods Not Reportable 08/15/17 05:34 Platelet Estimate Appears decreased 08/15/17 05:34 Clumped Platelets Not Reportable 08/15/17 05:34 Plt Clumps, EDTA Not Reportable 08/15/17 05:34 Large Platelets Not Reportable 08/15/17 05:34 Giant Platelets Not Reportable 08/15/17 05:34 Platelet Satelliting Not Reportable 08/15/17 05:34 Plt Morphology Comment Not Reportable 08/15/17 05:34 RBC Morphology Not Reportable 08/15/17 05:34 Dimorphic RBCs Not Reportable 08/15/17 05:34 Polychromasia 1+ 08/15/17 05:34 Hypochromasia Not Reportable 08/15/17 05:34 Poikilocytosis 1+ 08/15/17 05:34 Anisocytosis 1+ 08/15/17 05:34 Microcytosis Not Reportable 08/15/17 05:34 Macrocytosis Not Reportable 08/15/17 05:34 Spherocytes Not Reportable 08/15/17 05:34 Pappenheimer Bodies Not Reportable 08/15/17 05:34 Sickle Cells Not Reportable 08/15/17 05:34 Target Cells 1+ 08/15/17 05:34 Tear Drop Cells Not Reportable 08/15/17 05:34 Ovalocytes Not Reportable 08/15/17 05:34 Stomatocytes Few 08/15/17 05:34 Helmet Cells Not Reportable 08/15/17 05:34 Woo-[place] Bodies Not Reportable 08/15/17 05:34 [place] Rings Not Reportable 08/15/17 05:34 Esteban Cells Few 08/15/17 05:34 Bite Cells Not Reportable 08/15/17 05:34 Crenated Cell Not Reportable 08/15/17 05:34 Elliptocytes Not Reportable 08/15/17 05:34 Acanthocytes (Spur) Not Reportable 08/15/17 05:34 Rouleaux Not Reportable 08/15/17 05:34 Hemoglobin C Crystals Not Reportable 08/15/17 05:34 Schistocytes Not Reportable 08/15/17 05:34 Malaria parasites Not Reportable 08/15/17 05:34 Madi Bodies Not Reportable 08/15/17 05:34 Hem Pathologist Commnt No 08/15/17 05:34 PT 17.2 Sec. (12.2-14.9) H 08/14/17 00:36 INR 1.33 (0.87-1.13) H 08/14/17 00:36 APTT 38.3 Sec. (24.2-36.6) H 08/14/17 00:36 Sodium 136 mmol/L (137-145) L 08/13/17 20:27 Potassium 3.8 mmol/L (3.6-5.0) 08/13/17 20:27 Chloride 98.6 mmol/L (98-107) 08/13/17 20:27 Carbon Dioxide 21 mmol/L (22-30) L 08/13/17 20:27 Anion Gap 20 mmol/L 08/13/17 20:27 BUN 13 mg/dL (7-17) 08/13/17 20:27 Creatinine 1.5 mg/dL (0.7-1.2) H 08/13/17 20:27 Estimated GFR 46 ml/min 08/13/17 20:27 BUN/Creatinine Ratio 9 % 08/13/17 20:27 Glucose 125 mg/dL (65-100) H 08/13/17 20:27 Calcium 7.9 mg/dL (8.4-10.2) L 08/13/17 20:27 Total Bilirubin 18.90 mg/dL (0.1-1.2) H 08/13/17 21:13 Direct Bilirubin 13.2 mg/dL (0-0.2) H 08/13/17 21:13 Indirect Bilirubin 5.7 mg/dL 08/13/17 21:13 AST 169 units/L (5-40) H 08/13/17 21:13 ALT 77 units/L (7-56) H 08/13/17 21:13 Alkaline Phosphatase 326 units/L (35-129) H 08/13/17 21:13 Ammonia 77.0 umol/L (25-60) H 08/13/17 21:06 Total Creatine Kinase 71 units/L (30-135) 08/14/17 07:52 CK-MB (CK-2) 2.1 ng/mL (0.0-4.0) 08/14/17 07:52 CK-MB (CK-2) Rel Index 2.9 (0-4) 08/14/17 07:52 Troponin T < 0.010 ng/mL (0.00-0.029) 08/14/17 07:52 Total Protein 5.7 g/dL (6.3-8.2) L 08/13/17 21:13 Albumin 2.1 g/dL (3.9-5) L 08/13/17 21:13 Albumin/Globulin Ratio 0.6 % 08/13/17 21:13 Amylase 32 units/L (27-131) 08/13/17 20:27 Lipase 8 units/L (13-60) L 08/13/17 20:27 Urine Color Michaela (Yellow) 08/13/17 21:24 Urine Turbidity Clear (Clear) 08/13/17 21:24 Urine pH 6.0 (5.0-7.0) 08/13/17 21:24 Ur Specific [place] 1.013 (1.003-1.030) 08/13/17 21:24 Urine Protein <15 mg/dl mg/dL (Negative) 08/13/17 21:24 Urine Glucose (UA) Neg mg/dL (Negative) 08/13/17 21:24 Urine Ketones Neg mg/dL (Negative) 08/13/17 21:24 Urine Blood Neg (Negative) 08/13/17 21:24 Urine Nitrite Neg (Negative) 08/13/17 21:24 Urine Bilirubin Mod (Negative) 08/13/17 21:24 Urine Ictotest Positive (Negative) 08/13/17 21:24 Urine Urobilinogen 4.0 mg/dL (<2.0) 08/13/17 21:24 Ur Leukocyte Esterase Neg (Negative) 08/13/17 21:24 Urine WBC (Auto) 4.0 /HPF (0.0-6.0) 08/13/17 21:24 Urine RBC (Auto) 1.0 /HPF (0.0-6.0) 08/13/17 21:24 U Epithel Cells (Auto) 7.0 /HPF (0-13.0) 08/13/17 21:24 Urine Bacteria (Auto) 2+ /HPF (Negative) 08/13/17 21:24 Amorphous Crystals Few 08/13/17 21:24 Urine Mucus Few /HPF 08/13/17 21:24 Urine Opiates Screen Presumptive negative 08/13/17 21:24 Urine Methadone Screen Presumptive negative 08/13/17 21:24 Ur Barbiturates Screen Presumptive negative 08/13/17 21:24 Ur Phencyclidine Scrn Presumptive negative 08/13/17 21:24 Ur Amphetamines Screen Presumptive negative 08/13/17 21:24 U Benzodiazepines Scrn Presumptive negative 08/13/17 21:24 Urine Cocaine Screen Presumptive positive 08/13/17 21:24 U Marijuana (THC) Screen Presumptive positive 08/13/17 21:24 Drugs of Abuse Note Disclamer 08/13/17 21:24 Plasma/Serum Alcohol 0.11 % (0-0.07) H 08/13/17 21:13 Hepatitis A IgM Ab Non-reactive (NonReactive) 08/13/17 21:30 Hep Bs Antigen Non-reactive (Negative) 08/13/17 21:30 Hep B Core IgM Ab Non-reactive (NonReactive) 08/13/17 21:30 Hepatitis C Antibody Non-reactive (NonReactive) 08/13/17 21:30 Blood Type O POSITIVE 08/13/17 21:06 Antibody Screen Negative 08/13/17 21:06 Crossmatch See Detail 08/13/17 21:06
--- NOTE | 2017-08-15 16:51 | XRay Report ---
FINAL REPORT EXAM: XR CHEST 1V AP HISTORY: fever TECHNIQUE: Frontal chest x-ray. PRIORS: None currently available. FINDINGS: Cardiac silhouette is within normal limits. Aortic calcifications. There is no effusion. There is no pneumothorax. Subtle ill-defined opacities at the right infrahilar region, left retrocardiac region left costophrenic angle. There are no suspicious osseous lesions. IMPRESSION: Suspect focal infiltrates in the right middle lobe and left lower lobe. Differential diagnosis would include subsegmental atelectasis.
[2017-08-15 17:23] LABS: Hematocrit 24.7 % (30.3-42.9); Hemoglobin 8.5 gm/dl (10.1-14.3); Mean Corpuscular HGB Conc 34 % (30-34); Mean Corpuscular Hemoglobin 34 pg (28-32); Mean Corpuscular Volume 100 fl (79-97); Platelet Count 115 K/mm3 (140-440); Red Blood Count 2.47 M/mm3 (3.65-5.03)
[2017-08-15 17:33] LABS: Red Cell Distribution Width 26.7 % (13.2-15.2)
[2017-08-15 17:48] LABS: Albumin 1.8 g/dL (3.9-5)
[2017-08-15 18:27] LABS: Bilirubin,Direct 12.5 mg/dL (0-0.2)
[2017-08-16] MEDS: ZOSYN/NS 4.5GM/100ML 4.5 GM/100 ML VIAL IV SCH ×4 (00:21→23:19)
[2017-08-16] MEDS: SODIUM CHLORIDE FLUSH SYRINGE 10 ML IV SCH ×3 (00:23→23:19)
[2017-08-16] MEDS: MORPHINE IV PRN ×3 (01:53→20:24)
[2017-08-16] MEDS: NACL 0.45% 1000 ML 1,000 ML IV SCH (05:57)
[2017-08-16 07:12] LABS: INR 1.41 (0.87-1.13)
[2017-08-16 07:27] LABS: Albumin 2.2 g/dL (3.9-5); Calcium 7.8 mg/dL (8.4-10.2)
--- NOTE | 2017-08-16 10:36 | Gastroenterology Progress Note ---
<JERAMIE CARDENAS - Last Filed: 08/16/17 10:42> Assessment and Plan (1) Gallstone Current Visit: Yes Status: Acute Plan to address problem: - Large GS, but MRCP negative for CBD obstruction. - Given acute liver disease with chronic pancreatitis, would not recommend surgery for 6-8 weeks at least (in the absence of acute cholecystitis) to avoid complications. -surgery following with recommendations given to transfer pt to [place], however no beds were available (2) Jaundice Current Visit: Yes Status: Acute Plan to address problem: - Jaundice with mild transaminitis and ascites (mild) on CT: likely acute alcoholic hepatitis. - Continue supportive care with MVI, protonix, CIWA protocol. - Abstinence encouraged. - Patient is not a candidate for liver transplant evaluation. - LFTs and INR (1.41)trending up- will give vit K today -no recommendations for steroids at this time with recent fever and sepsis workup (also concern with cocaine use and potential for severe HTN) -pt tolerating diet-okay to advance as tolerated -continue supportive care (3) Polysubstance abuse Current Visit: Yes Status: Acute Plan to address problem: - EtOH, cocaine, MJ. - Patient on MVI and CIWA protocol. - Abstinence encouraged; patient should enroll in NA/AA. Subjective Date of service: 08/16/17 Principal diagnosis: elevated bili Interval history: No acute distress noted. Admits to mild generalized abd pain but no N/ V.Tolerating diet. No signs of active bleeding. Objective - Constitutional Vitals: Temp Pulse Resp BP Pulse Ox 98.6 F 84 20 86/52 98 08/16/17 07:24 08/16/17 07:24 08/16/17 07:24 08/16/17 07:24 08/16/17 07:24 General appearance: no acute distress, other (somnolent) - EENT Eyes: scleral icterus - Respiratory Respiratory: bilateral: CTA - Cardiovascular Rhythm: regular Heart Sounds: Present: S1 & S2 - Gastrointestinal General gastrointestinal: Present: soft, non-tender, non-distended, normal bowel sounds - Labs CBC & Chem 7: 08/15/17 16:03 08/16/17 06:09 Labs: Laboratory Results - last 24 hr 08/15/17 08/15/17 08/16/17 16:03 16:03 06:09 WBC 7.0 RBC 2.47 L Hgb 8.5 L Hct 24.7 L MCV 100 H MCH 34 H MCHC 34 RDW 26.7 H Plt Count 115 L PT 18.1 H INR 1.41 H Sodium Potassium Chloride Carbon Dioxide Anion Gap BUN Creatinine Estimated GFR BUN/Creatinine Ratio Glucose Calcium Total Bilirubin 14.90 H Direct Bilirubin 12.5 H Indirect Bilirubin 2.4 AST 109 H ALT 54 Alkaline Phosphatase 250 H Total Protein 5.2 L Albumin 1.8 L Albumin/Globulin Ratio 0.5 08/16/17 06:09 WBC RBC Hgb Hct MCV MCH MCHC RDW Plt Count PT INR Sodium 136 L Potassium 3.6 Chloride 101.1 Carbon Dioxide 22 Anion Gap 17 BUN 8 Creatinine 1.5 H Estimated GFR 46 BUN/Creatinine Ratio 5 Glucose 86 Calcium 7.8 L Total Bilirubin 16.30 H Direct Bilirubin Indirect Bilirubin AST 114 H ALT 56 Alkaline Phosphatase 257 H Total Protein 5.9 L Albumin 2.2 L Albumin/Globulin Ratio 0.6 <MICHAELLE GUO R - Last Filed: 08/16/17 16:09> Assessment and Plan Pt has alcoholic hepatitis with probable underlying cirrhosis. - if INR improves with vit K, can D/C to home with EtOH abstinence, and outpatient follow up. - if does not, may consider steroids for alcoholic hepatitis, given low likelihood of cholecystitis at present Chronic calcific pancreatitis - due to EtOH - discussed with patient. Objective - Constitutional Vitals: Temp Pulse Resp BP Pulse Ox 98.6 F 84 20 86/52 98 08/16/17 07:24 08/16/17 07:24 08/16/17 07:24 08/16/17 07:24 08/16/17 07:24 - Labs CBC & Chem 7: 08/15/17 16:03 08/16/17 06:09 Labs: Laboratory Results - last 24 hr 08/15/17 08/15/17 08/16/17 16:03 16:03 06:09 WBC 7.0 RBC 2.47 L Hgb 8.5 L Hct 24.7 L MCV 100 H MCH 34 H MCHC 34 RDW 26.7 H Plt Count 115 L PT 18.1 H INR 1.41 H Sodium Potassium Chloride Carbon Dioxide Anion Gap BUN Creatinine Estimated GFR BUN/Creatinine Ratio Glucose Calcium Total Bilirubin 14.90 H Direct Bilirubin 12.5 H Indirect Bilirubin 2.4 AST 109 H ALT 54 Alkaline Phosphatase 250 H Total Protein 5.2 L Albumin 1.8 L Albumin/Globulin Ratio 0.5 08/16/17 06:09 WBC RBC Hgb Hct MCV MCH MCHC RDW Plt Count PT INR Sodium 136 L Potassium 3.6 Chloride 101.1 Carbon Dioxide 22 Anion Gap 17 BUN 8 Creatinine 1.5 H Estimated GFR 46 BUN/Creatinine Ratio 5 Glucose 86 Calcium 7.8 L Total Bilirubin 16.30 H Direct Bilirubin Indirect Bilirubin AST 114 H ALT 56 Alkaline Phosphatase 257 H Total Protein 5.9 L Albumin 2.2 L Albumin/Globulin Ratio 0.6
[2017-08-16] MEDS ORDERED: VITAMIN K (ADULT ONLY) SUB-Q ONE (11:00)
[2017-08-16] MEDS: PROTONIX PO SCH (11:05)
[2017-08-16] MEDS: THERAGRAN-M Tab PO SCH (11:05)
--- NOTE | 2017-08-16 14:56 | Progress Note ---
Subjective Narrative: feels and looks better abd flat and soft .indicated to Pt to see me PRN Objective Vital Signs - 12hr 08/16/17 07:24 Temperature 98.6 F Pulse Rate 84 Respiratory 20 Rate Blood Pressure 86/52 O2 Sat by Pulse 98 Oximetry - Labs 08/15/17 16:03 08/16/17 06:09 Diabetes panel 08/15/17 08/16/17 Range/Units 16:03 06:09 Sodium 136 L (137-145) mmol/L Potassium 3.6 (3.6-5.0) mmol/L Chloride 101.1 (98-107) mmol/L Carbon Dioxide 22 (22-30) mmol/L BUN 8 (7-17) mg/dL Creatinine 1.5 H (0.7-1.2) mg/dL Glucose 86 (65-100) mg/dL Calcium 7.8 L (8.4-10.2) mg/dL AST 109 H 114 H (5-40) units/L ALT 54 56 (7-56) units/L Alkaline Phosphatase 250 H 257 H (35-129) units/L Total Protein 5.2 L 5.9 L (6.3-8.2) g/dL Albumin 1.8 L 2.2 L (3.9-5) g/dL Calcium panel 08/15/17 08/16/17 Range/Units 16:03 06:09 Calcium 7.8 L (8.4-10.2) mg/dL Albumin 1.8 L 2.2 L (3.9-5) g/dL Pituitary panel 08/16/17 Range/Units 06:09 Sodium 136 L (137-145) mmol/L Potassium 3.6 (3.6-5.0) mmol/L Chloride 101.1 (98-107) mmol/L Carbon Dioxide 22 (22-30) mmol/L BUN 8 (7-17) mg/dL Creatinine 1.5 H (0.7-1.2) mg/dL Glucose 86 (65-100) mg/dL Calcium 7.8 L (8.4-10.2) mg/dL Adrenal panel 08/15/17 08/16/17 Range/Units 16:03 06:09 Sodium 136 L (137-145) mmol/L Potassium 3.6 (3.6-5.0) mmol/L Chloride 101.1 (98-107) mmol/L Carbon Dioxide 22 (22-30) mmol/L BUN 8 (7-17) mg/dL Creatinine 1.5 H (0.7-1.2) mg/dL Glucose 86 (65-100) mg/dL Calcium 7.8 L (8.4-10.2) mg/dL Total Bilirubin 14.90 H 16.30 H (0.1-1.2) mg/dL AST 109 H 114 H (5-40) units/L ALT 54 56 (7-56) units/L Alkaline Phosphatase 250 H 257 H (35-129) units/L Total Protein 5.2 L 5.9 L (6.3-8.2) g/dL Albumin 1.8 L 2.2 L (3.9-5) g/dL
--- NOTE | 2017-08-16 16:19 | Progress Note ---
Assessment and Plan Assessment and plan: Patient is a 42 yo woman with a history of htn, alcohol abuse with pancreatitis who presented to the ED with ams, syncope, dizziness, abd pains and yellow eyes. She was found to have etoh level of 0.11 and urine drug screen positive for cocaine and marijuana. CT abd/pelvis wo contrast IMPRESSION: Very large gallstone nearly filling the gallbladder visualized as described. Large hepatic cyst is visualized. Extensive coarse calcifications project throughout the pancreas consistent with chronic pancreatitis. There is mild hazy increased density in the adipose tissue inferior to the pancreas suggesting edema related to acute pancreatitis. No pseudocyst is visualized. Small amount of ascites visualized, located in the lower pelvis posteriorly on the right. The appendix is suboptimally seen. There is an appendicolith visualized in the right mid pelvis laterally as within the lumen of the appendix. No definite inflammatory change seen in the appendix however the diameter is greater than expected for normal appendix. This may represent chronic appendicitis. Abscess and free air are not visualized. 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 -Polysubstance drug abuse, pt is in denial: counseling done -Gallstone: consulted GI -Hyperbilirubinemia: surgery already consulted, -Acute on chronic anemia due to chronic liver disease: transfuse prbc -Alcohol abuse with intoxication: counseling done, treat with CIWA protocol -Thrombocytopenia: related to etoh liver disease -isolated elevated temp. pCXR reported as focal infiltrates RML and LLL, differential diagnosis would include subsegmental atelectasis. normal wbc, blood ctx negative so far. Atelectasis can cause mild temp.elevation. Will order incentive spirometry and nebs. follow cultures, empiric treat for aspiration pneumonia, poa, until blood cultures back d/w Dr. Miller, he wants her transferred to [facility]. I explained to him that pt is not a transplant candidate at this time but he states that she is known to the [facility] system, so I called [facility] transfer center at [phone], spoke with Kendra, no beds at [facility]; therefore, unable to transfer D/w Dr. Smiley, vit k given, if coags better tomorrow, will discharge. History Interval history: Patient was seen and examined. Follow-up on current diagnosis of abdominal pain which is still present. Overnight uneventful. Patient denies any chest pain, shortness breath, nausea/vomiting or severe headaches. Imaging, nursing note, chart, labs and old chart reviewed. Discussed with patient. Hospitalist Physical - Physical exam Narrative exam: GEN: Thin frail, NAD, AWAKE, ALERT, ORIENTATED 3 HEENT: NCAT, EOMI, PERRL, OP Clear NECK: supple, no adenopathy, no thyromegaly, no JVD CVS/HEART: RRR, NORMAL S1S2, pulses present bilaterally CHEST/LUNGS: CTA B, Symmetrical chest expansion, good air entry bilaterally GI/Abdomen: soft, nondistended, epigastric tenderness, good bowel sounds, no guarding or rebound /Bladder: no suprapubic tenderness, no CVA or paraspinal tenderness EXT/Skin: no c/c/e, no obvious rash MSK: FROM x 4 Neuro: CN 2-12 grossly intact, no new focal deficits Psych: with drawn - Constitutional Vitals: Temp Pulse Resp BP Pulse Ox 98.6 F 84 20 86/52 98 08/16/17 07:24 08/16/17 07:24 08/16/17 07:24 08/16/17 07:24 08/16/17 07:24 Results - Labs CBC & Chem 7: 08/15/17 16:03 08/16/17 06:09 Labs: Laboratory Last Values WBC 7.0 K/mm3 (4.5-11.0) 08/15/17 16:03 RBC 2.47 M/mm3 (3.65-5.03) L 08/15/17 16:03 Hgb 8.5 gm/dl (10.1-14.3) L 08/15/17 16:03 Hct 24.7 % (30.3-42.9) L 08/15/17 16:03 MCV 100 fl (79-97) H 08/15/17 16:03 MCH 34 pg (28-32) H 08/15/17 16:03 MCHC 34 % (30-34) 08/15/17 16:03 RDW 26.7 % (13.2-15.2) H 08/15/17 16:03 Plt Count 115 K/mm3 (140-440) L 08/15/17 16:03 Lymph % (Auto) Cashier 08/13/17 20:27 Lymph # Cashier 08/13/17 20:27 Add Manual Diff Complete 08/15/17 05:34 Total Counted 100 08/15/17 05:34 Seg Neutrophils % Cashier 08/13/17 20:27 Seg Neuts % (Manual) 89.0 % (40.0-70.0) H 08/15/17 05:34 Band Neutrophils % 4.0 % 08/15/17 05:34 Lymphocytes % (Manual) 5.0 % (13.4-35.0) L 08/15/17 05:34 Reactive Lymphs % (Man) 0 % 08/15/17 05:34 Monocytes % (Manual) 1.0 % (0.0-7.3) 08/15/17 05:34 Eosinophils % (Manual) 0 % (0.0-4.3) 08/15/17 05:34 Basophils % (Manual) 0 % (0.0-1.8) 08/15/17 05:34 Metamyelocytes % 0 % 08/15/17 05:34 Myelocytes % 1.0 % 08/15/17 05:34 Promyelocytes % 0 % 08/15/17 05:34 Blast Cells % 0 % 08/15/17 05:34 Nucleated RBC % Not Reportable 08/15/17 05:34 Seg Neutrophils # Man 6.7 K/mm3 (1.8-7.7) 08/15/17 05:34 Band Neutrophils # 0.3 K/mm3 08/15/17 05:34 Lymphocytes # (Manual) 0.4 K/mm3 (1.2-5.4) L 08/15/17 05:34 Abs React Lymphs (Man) 0.0 K/mm3 08/15/17 05:34 Monocytes # (Manual) 0.1 K/mm3 (0.0-0.8) 08/15/17 05:34 Eosinophils # (Manual) 0.0 K/mm3 (0.0-0.4) 08/15/17 05:34 Basophils # (Manual) 0.0 K/mm3 (0.0-0.1) 08/15/17 05:34 Metamyelocytes # 0.0 K/mm3 08/15/17 05:34 Myelocytes # 0.1 K/mm3 08/15/17 05:34 Promyelocytes # 0.0 K/mm3 08/15/17 05:34 Blast Cells # 0.0 K/mm3 08/15/17 05:34 WBC Morphology Not Reportable 08/15/17 05:34 Hypersegmented Neuts Not Reportable 08/15/17 05:34 Hyposegmented Neuts Not Reportable 08/15/17 05:34 Hypogranular Neuts Not Reportable 08/15/17 05:34 Smudge Cells Not Reportable 08/15/17 05:34 Toxic Granulation Not Reportable 08/15/17 05:34 Toxic Vacuolation Not Reportable 08/15/17 05:34 Dohle Bodies Not Reportable 08/15/17 05:34 Pelger-Huet Anomaly Not Reportable 08/15/17 05:34 Roni Rods Not Reportable 08/15/17 05:34 Platelet Estimate Appears decreased 08/15/17 05:34 Clumped Platelets Not Reportable 08/15/17 05:34 Plt Clumps, EDTA Not Reportable 08/15/17 05:34 Large Platelets Not Reportable 08/15/17 05:34 Giant Platelets Not Reportable 08/15/17 05:34 Platelet Satelliting Not Reportable 08/15/17 05:34 Plt Morphology Comment Not Reportable 08/15/17 05:34 RBC Morphology Not Reportable 08/15/17 05:34 Dimorphic RBCs Not Reportable 08/15/17 05:34 Polychromasia 1+ 08/15/17 05:34 Hypochromasia Not Reportable 08/15/17 05:34 Poikilocytosis 1+ 08/15/17 05:34 Anisocytosis 1+ 08/15/17 05:34 Microcytosis Not Reportable 08/15/17 05:34 Macrocytosis Not Reportable 08/15/17 05:34 Spherocytes Not Reportable 08/15/17 05:34 Pappenheimer Bodies Not Reportable 08/15/17 05:34 Sickle Cells Not Reportable 08/15/17 05:34 Target Cells 1+ 08/15/17 05:34 Tear Drop Cells Not Reportable 08/15/17 05:34 Ovalocytes Not Reportable 08/15/17 05:34 Stomatocytes Few 08/15/17 05:34 Helmet Cells Not Reportable 08/15/17 05:34 [place] Bodies Not Reportable 08/15/17 05:34 [place] Rings Not Reportable 08/15/17 05:34 Esteban Cells Few 08/15/17 05:34 Bite Cells Not Reportable 08/15/17 05:34 Crenated Cell Not Reportable 08/15/17 05:34 Elliptocytes Not Reportable 08/15/17 05:34 Acanthocytes (Spur) Not Reportable 08/15/17 05:34 Rouleaux Not Reportable 08/15/17 05:34 Hemoglobin C Crystals Not Reportable 08/15/17 05:34 Schistocytes Not Reportable 08/15/17 05:34 Malaria parasites Not Reportable 08/15/17 05:34 Madi Bodies Not Reportable 08/15/17 05:34 Hem Pathologist Commnt No 08/15/17 05:34 PT 18.1 Sec. (12.2-14.9) H 08/16/17 06:09 INR 1.41 (0.87-1.13) H 08/16/17 06:09 APTT 38.3 Sec. (24.2-36.6) H 08/14/17 00:36 Sodium 136 mmol/L (137-145) L 08/16/17 06:09 Potassium 3.6 mmol/L (3.6-5.0) 08/16/17 06:09 Chloride 101.1 mmol/L (98-107) 08/16/17 06:09 Carbon Dioxide 22 mmol/L (22-30) 08/16/17 06:09 Anion Gap 17 mmol/L 08/16/17 06:09 BUN 8 mg/dL (7-17) 08/16/17 06:09 Creatinine 1.5 mg/dL (0.7-1.2) H 08/16/17 06:09 Estimated GFR 46 ml/min 08/16/17 06:09 BUN/Creatinine Ratio 5 % 08/16/17 06:09 Glucose 86 mg/dL (65-100) 08/16/17 06:09 Calcium 7.8 mg/dL (8.4-10.2) L 08/16/17 06:09 Total Bilirubin 16.30 mg/dL (0.1-1.2) H 08/16/17 06:09 Direct Bilirubin 12.5 mg/dL (0-0.2) H 08/15/17 16:03 Indirect Bilirubin 2.4 mg/dL 08/15/17 16:03 AST 114 units/L (5-40) H 08/16/17 06:09 ALT 56 units/L (7-56) 08/16/17 06:09 Alkaline Phosphatase 257 units/L (35-129) H 08/16/17 06:09 Ammonia 77.0 umol/L (25-60) H 08/13/17 21:06 Total Creatine Kinase 71 units/L (30-135) 08/14/17 07:52 CK-MB (CK-2) 2.1 ng/mL (0.0-4.0) 08/14/17 07:52 CK-MB (CK-2) Rel Index 2.9 (0-4) 08/14/17 07:52 Troponin T < 0.010 ng/mL (0.00-0.029) 08/14/17 07:52 Total Protein 5.9 g/dL (6.3-8.2) L 08/16/17 06:09 Albumin 2.2 g/dL (3.9-5) L 08/16/17 06:09 Albumin/Globulin Ratio 0.6 % 08/16/17 06:09 Amylase 32 units/L (27-131) 08/13/17 20:27 Lipase 8 units/L (13-60) L 08/13/17 20:27 Urine Color Michaela (Yellow) 08/13/17 21:24 Urine Turbidity Clear (Clear) 08/13/17 21:24 Urine pH 6.0 (5.0-7.0) 08/13/17 21:24 Ur Specific [place] 1.013 (1.003-1.030) 08/13/17 21:24 Urine Protein <15 mg/dl mg/dL (Negative) 08/13/17 21:24 Urine Glucose (UA) Neg mg/dL (Negative) 08/13/17 21:24 Urine Ketones Neg mg/dL (Negative) 08/13/17 21:24 Urine Blood Neg (Negative) 08/13/17 21:24 Urine Nitrite Neg (Negative) 08/13/17 21:24 Urine Bilirubin Mod (Negative) 08/13/17 21:24 Urine Ictotest Positive (Negative) 08/13/17 21:24 Urine Urobilinogen 4.0 mg/dL (<2.0) 08/13/17 21:24 Ur Leukocyte Esterase Neg (Negative) 08/13/17 21:24 Urine WBC (Auto) 4.0 /HPF (0.0-6.0) 08/13/17 21:24 Urine RBC (Auto) 1.0 /HPF (0.0-6.0) 08/13/17 21:24 U Epithel Cells (Auto) 7.0 /HPF (0-13.0) 08/13/17 21:24 Urine Bacteria (Auto) 2+ /HPF (Negative) 08/13/17 21:24 Amorphous Crystals Few 08/13/17 21:24 Urine Mucus Few /HPF 08/13/17 21:24 Urine Opiates Screen Presumptive negative 08/13/17 21:24 Urine Methadone Screen Presumptive negative 08/13/17 21:24 Ur Barbiturates Screen Presumptive negative 08/13/17 21:24 Ur Phencyclidine Scrn Presumptive negative 08/13/17 21:24 Ur Amphetamines Screen Presumptive negative 08/13/17 21:24 U Benzodiazepines Scrn Presumptive negative 08/13/17 21:24 Urine Cocaine Screen Presumptive positive 08/13/17 21:24 U Marijuana (THC) Screen Presumptive positive 08/13/17 21:24 Drugs of Abuse Note Disclamer 08/13/17 21:24 Plasma/Serum Alcohol 0.11 % (0-0.07) H 08/13/17 21:13 Hepatitis A IgM Ab Non-reactive (NonReactive) 08/13/17 21:30 Hep Bs Antigen Non-reactive (Negative) 08/13/17 21:30 Hep B Core IgM Ab Non-reactive (NonReactive) 08/13/17 21:30 Hepatitis C Antibody Non-reactive (NonReactive) 08/13/17 21:30 Blood Type O POSITIVE 08/13/17 21:06 Antibody Screen Negative 08/13/17 21:06 Crossmatch See Detail 08/13/17 21:06
[2017-08-16] MEDS ORDERED: DUONEB *Not for PRN Use IH ONE (16:20)
[2017-08-16] MEDS ORDERED: REGLAN IV PRN (16:24)
[2017-08-16] MEDS ORDERED: VANCOMYCIN PHARMACY TO DOSE IV SCH (17:00)
[2017-08-16] MEDS ORDERED: LEVAQUIN 750MG/150ML 750 MG/150 ML BAG IV ONE (17:00)
[2017-08-16] MEDS: VANCOMYCIN/0.45 NS 1 GM/250 ML 1 GM/250 ML BAG IV SCH (20:07)
[2017-08-17] MEDS: MORPHINE IV PRN ×4 (02:45→21:53)
[2017-08-17 06:02] LABS: Hematocrit 23.3 % (30.3-42.9); Mean Corpuscular HGB Conc 34 % (30-34); Mean Corpuscular Hemoglobin 35 pg (28-32); Mean Corpuscular Volume 101 fl (79-97); Platelet Count 106 K/mm3 (140-440)
[2017-08-17 06:05] LABS: Red Cell Distribution Width 26.1 % (13.2-15.2)
[2017-08-17 06:14] LABS: INR 1.44 (0.87-1.13)
[2017-08-17 06:30] LABS: Albumin 1.9 g/dL (3.9-5); Calcium 7.5 mg/dL (8.4-10.2)
[2017-08-17] MEDS: ZOSYN/NS 4.5GM/100ML 4.5 GM/100 ML VIAL IV SCH ×3 (07:00→21:52)
[2017-08-17 07:02] LABS: Anisocytosis 3+; Band Neutrophils # (Manual) 0.3 K/mm3; Basophils % (Manual) 0 % (0.0-1.8); Platelet Estimate Appears Decreased; Target Cells 1+; Total Cells Counted 100
--- NOTE | 2017-08-17 09:16 | Gastroenterology Progress Note ---
<JERAMIE CARDENAS - Last Filed: 08/17/17 09:24> Assessment and Plan (1) Gallstone Current Visit: Yes Status: Acute Plan to address problem: - Large GS, but MRCP negative for CBD obstruction. - Given acute liver disease with chronic pancreatitis, would not recommend surgery for 6-8 weeks at least (in the absence of acute cholecystitis) to avoid complications. -surgery following with recommendations given to transfer pt to [place], however no beds were available (2) Jaundice Current Visit: Yes Status: Acute Plan to address problem: - Jaundice with mild transaminitis and ascites (mild) on CT: likely acute alcoholic hepatitis. - Continue supportive care with MVI, protonix, CIWA protocol. - Abstinence encouraged. - Patient is not a candidate for liver transplant evaluation. - LFTs trending down - INR unresponsive to vit K challenge yesterday - discriminant function 43 and pt currently afebrile with WBC WNL- will start on steroids -pt tolerating diet-okay to advance as tolerated -continue supportive care (3) Polysubstance abuse Current Visit: Yes Status: Acute Plan to address problem: - EtOH, cocaine, MJ. - Patient on MVI and CIWA protocol. - Abstinence encouraged; patient should enroll in NA/AA. Subjective Date of service: 08/17/17 Principal diagnosis: elevated bili Interval history: No acute events overnight. Pt with continued mild abd pain but no N/V or signs of bleeding. Objective - Constitutional Vitals: Temp Pulse Resp BP Pulse Ox 98.4 F 77 20 93/56 98 08/17/17 07:29 08/17/17 07:29 08/17/17 07:29 08/17/17 07:29 08/17/17 07:29 General appearance: no acute distress - EENT Eyes: scleral icterus - Respiratory Respiratory: bilateral: CTA - Cardiovascular Rhythm: regular Heart Sounds: Present: S1 & S2 - Gastrointestinal General gastrointestinal: Present: soft, tender (mild generalized TTP), non- distended, normal bowel sounds - Neurologic Neurological: alert and oriented x3 - Labs CBC & Chem 7: 08/17/17 05:42 08/17/17 05:42 Labs: Laboratory Results - last 24 hr 08/16/17 08/17/17 08/17/17 21:13 05:42 05:42 WBC 7.9 RBC 2.30 L Hgb 8.0 L Hct 23.3 L MCV 101 H MCH 35 H MCHC 34 RDW 26.1 H Plt Count 106 L Add Manual Diff Complete Total Counted 100 Seg Neuts % (Manual) 83.0 H Band Neutrophils % 4.0 Lymphocytes % (Manual) 8.0 L Reactive Lymphs % (Man) 0 Monocytes % (Manual) 3.0 Eosinophils % (Manual) 1.0 Basophils % (Manual) 0 Metamyelocytes % 1.0 Myelocytes % 0 Promyelocytes % 0 Blast Cells % 0 Nucleated RBC % Not Reportable Seg Neutrophils # Man 6.6 Band Neutrophils # 0.3 Lymphocytes # (Manual) 0.6 L Abs React Lymphs (Man) 0.0 Monocytes # (Manual) 0.2 Eosinophils # (Manual) 0.1 Basophils # (Manual) 0.0 Metamyelocytes # 0.1 Myelocytes # 0.0 Promyelocytes # 0.0 Blast Cells # 0.0 WBC Morphology Not Reportable Hypersegmented Neuts Not Reportable Hyposegmented Neuts Not Reportable Hypogranular Neuts Not Reportable Smudge Cells Not Reportable Toxic Granulation Not Reportable Toxic Vacuolation Not Reportable Dohle Bodies Not Reportable Pelger-Huet Anomaly Not Reportable Roni Rods Not Reportable Platelet Estimate Appears decreased Clumped Platelets Not Reportable Plt Clumps, EDTA Not Reportable Large Platelets Not Reportable Giant Platelets Not Reportable Platelet Satelliting Not Reportable Plt Morphology Comment Not Reportable RBC Morphology Not Reportable Dimorphic RBCs Not Reportable Polychromasia Not Reportable Hypochromasia Not Reportable Poikilocytosis Not Reportable Anisocytosis 3+ Microcytosis Not Reportable Macrocytosis Not Reportable Spherocytes Not Reportable Pappenheimer Bodies Not Reportable Sickle Cells Not Reportable Target Cells 1+ Tear Drop Cells Not Reportable Ovalocytes Not Reportable Helmet Cells Not Reportable [place] Bodies Not Reportable [place] Rings Not Reportable [place] Cells Not Reportable Bite Cells Not Reportable Crenated Cell Not Reportable Elliptocytes Not Reportable Acanthocytes (Spur) Not Reportable Rouleaux Not Reportable Hemoglobin C Crystals Not Reportable Schistocytes Not Reportable Malaria parasites Not Reportable Madi Bodies Not Reportable Hem Pathologist Commnt No PT 18.4 H INR 1.44 H Sodium Potassium Chloride Carbon Dioxide Anion Gap BUN Creatinine Estimated GFR BUN/Creatinine Ratio Glucose POC Glucose 128 H Calcium Total Bilirubin AST ALT Alkaline Phosphatase Total Protein Albumin Albumin/Globulin Ratio 08/17/17 05:42 WBC RBC Hgb Hct MCV MCH MCHC RDW Plt Count Add Manual Diff Total Counted Seg Neuts % (Manual) Band Neutrophils % Lymphocytes % (Manual) Reactive Lymphs % (Man) Monocytes % (Manual) Eosinophils % (Manual) Basophils % (Manual) Metamyelocytes % Myelocytes % Promyelocytes % Blast Cells % Nucleated RBC % Seg Neutrophils # Man Band Neutrophils # Lymphocytes # (Manual) Abs React Lymphs (Man) Monocytes # (Manual) Eosinophils # (Manual) Basophils # (Manual) Metamyelocytes # Myelocytes # Promyelocytes # Blast Cells # WBC Morphology Hypersegmented Neuts Hyposegmented Neuts Hypogranular Neuts Smudge Cells Toxic Granulation Toxic Vacuolation Dohle Bodies Pelger-Huet Anomaly Roni Rods Platelet Estimate Clumped Platelets Plt Clumps, EDTA Large Platelets Giant Platelets Platelet Satelliting Plt Morphology Comment RBC Morphology Dimorphic RBCs Polychromasia Hypochromasia Poikilocytosis Anisocytosis Microcytosis Macrocytosis Spherocytes Pappenheimer Bodies Sickle Cells Target Cells Tear Drop Cells Ovalocytes Helmet Cells [place] Bodies [place] Rings [place] Cells Bite Cells Crenated Cell Elliptocytes Acanthocytes (Spur) Rouleaux Hemoglobin C Crystals Schistocytes Malaria parasites Madi Bodies Hem Pathologist Commnt PT INR Sodium 135 L Potassium 3.6 Chloride 102.7 Carbon Dioxide 20 L Anion Gap 16 BUN 7 Creatinine 1.7 H Estimated GFR 40 BUN/Creatinine Ratio 4 Glucose 90 POC Glucose Calcium 7.5 L Total Bilirubin 13.40 H AST 75 H ALT 43 Alkaline Phosphatase 194 H Total Protein 5.2 L Albumin 1.9 L Albumin/Globulin Ratio 0.6 <MICHAELLE GUO R - Last Filed: 08/17/17 19:03> Assessment and Plan Jaundice - due to alcoholic hepatitis with probable underlying cirrhosis. Given lack of improvement, steroids were given, though benefit uncertain. Will monitor post-auricular abscess, which was drained yesterday, and is currently soft. Otherwise, okay to D/C home from GI/Liver standpoint, with outpatient follow up. Chronic calcific pancreatitis - due to EtOH. Objective - Constitutional Vitals: Temp Pulse Resp BP Pulse Ox 98.6 F 88 20 112/55 98 08/17/17 15:46 08/17/17 15:46 08/17/17 15:46 08/17/17 15:46 08/17/17 15:46 - Labs CBC & Chem 7: 08/17/17 05:42 08/17/17 05:42 Labs: Laboratory Results - last 24 hr 08/16/17 08/17/17 08/17/17 21:13 05:42 05:42 WBC 7.9 RBC 2.30 L Hgb 8.0 L Hct 23.3 L MCV 101 H MCH 35 H MCHC 34 RDW 26.1 H Plt Count 106 L Add Manual Diff Complete Total Counted 100 Seg Neuts % (Manual) 83.0 H Band Neutrophils % 4.0 Lymphocytes % (Manual) 8.0 L Reactive Lymphs % (Man) 0 Monocytes % (Manual) 3.0 Eosinophils % (Manual) 1.0 Basophils % (Manual) 0 Metamyelocytes % 1.0 Myelocytes % 0 Promyelocytes % 0 Blast Cells % 0 Nucleated RBC % Not Reportable Seg Neutrophils # Man 6.6 Band Neutrophils # 0.3 Lymphocytes # (Manual) 0.6 L Abs React Lymphs (Man) 0.0 Monocytes # (Manual) 0.2 Eosinophils # (Manual) 0.1 Basophils # (Manual) 0.0 Metamyelocytes # 0.1 Myelocytes # 0.0 Promyelocytes # 0.0 Blast Cells # 0.0 WBC Morphology Not Reportable Hypersegmented Neuts Not Reportable Hyposegmented Neuts Not Reportable Hypogranular Neuts Not Reportable Smudge Cells Not Reportable Toxic Granulation Not Reportable Toxic Vacuolation Not Reportable Dohle Bodies Not Reportable Pelger-Huet Anomaly Not Reportable Roni Rods Not Reportable Platelet Estimate Appears decreased Clumped Platelets Not Reportable Plt Clumps, EDTA Not Reportable Large Platelets Not Reportable Giant Platelets Not Reportable Platelet Satelliting Not Reportable Plt Morphology Comment Not Reportable RBC Morphology Not Reportable Dimorphic RBCs Not Reportable Polychromasia Not Reportable Hypochromasia Not Reportable Poikilocytosis Not Reportable Anisocytosis 3+ Microcytosis Not Reportable Macrocytosis Not Reportable Spherocytes Not Reportable Pappenheimer Bodies Not Reportable Sickle Cells Not Reportable Target Cells 1+ Tear Drop Cells Not Reportable Ovalocytes Not Reportable Helmet Cells Not Reportable [place] Bodies Not Reportable [place] Rings Not Reportable [place] Cells Not Reportable Bite Cells Not Reportable Crenated Cell Not Reportable Elliptocytes Not Reportable Acanthocytes (Spur) Not Reportable Rouleaux Not Reportable Hemoglobin C Crystals Not Reportable Schistocytes Not Reportable Malaria parasites Not Reportable Madi Bodies Not Reportable Hem Pathologist Commnt No PT 18.4 H INR 1.44 H Sodium Potassium Chloride Carbon Dioxide Anion Gap BUN Creatinine Estimated GFR BUN/Creatinine Ratio Glucose POC Glucose 128 H Calcium Total Bilirubin AST ALT Alkaline Phosphatase Total Protein Albumin Albumin/Globulin Ratio 08/17/17 05:42 WBC RBC Hgb Hct MCV MCH MCHC RDW Plt Count Add Manual Diff Total Counted Seg Neuts % (Manual) Band Neutrophils % Lymphocytes % (Manual) Reactive Lymphs % (Man) Monocytes % (Manual) Eosinophils % (Manual) Basophils % (Manual) Metamyelocytes % Myelocytes % Promyelocytes % Blast Cells % Nucleated RBC % Seg Neutrophils # Man Band Neutrophils # Lymphocytes # (Manual) Abs React Lymphs (Man) Monocytes # (Manual) Eosinophils # (Manual) Basophils # (Manual) Metamyelocytes # Myelocytes # Promyelocytes # Blast Cells # WBC Morphology Hypersegmented Neuts Hyposegmented Neuts Hypogranular Neuts Smudge Cells Toxic Granulation Toxic Vacuolation Dohle Bodies Pelger-Huet Anomaly Roni Rods Platelet Estimate Clumped Platelets Plt Clumps, EDTA Large Platelets Giant Platelets Platelet Satelliting Plt Morphology Comment RBC Morphology Dimorphic RBCs Polychromasia Hypochromasia Poikilocytosis Anisocytosis Microcytosis Macrocytosis Spherocytes Pappenheimer Bodies Sickle Cells Target Cells Tear Drop Cells Ovalocytes Helmet Cells [place] Bodies [place] Rings [place] Cells Bite Cells Crenated Cell Elliptocytes Acanthocytes (Spur) Rouleaux Hemoglobin C Crystals Schistocytes Malaria parasites Madi Bodies Hem Pathologist Commnt PT INR Sodium 135 L Potassium 3.6 Chloride 102.7 Carbon Dioxide 20 L Anion Gap 16 BUN 7 Creatinine 1.7 H Estimated GFR 40 BUN/Creatinine Ratio 4 Glucose 90 POC Glucose Calcium 7.5 L Total Bilirubin 13.40 H AST 75 H ALT 43 Alkaline Phosphatase 194 H Total Protein 5.2 L Albumin 1.9 L Albumin/Globulin Ratio 0.6
[2017-08-17] MEDS: PROTONIX PO SCH (09:51)
[2017-08-17] MEDS: THERAGRAN-M Tab PO SCH (09:51)
[2017-08-17] MEDS: SODIUM CHLORIDE FLUSH SYRINGE 10 ML IV SCH ×2 (10:00→22:35)
[2017-08-17] MEDS: ORAPRED PO SCH (12:00)
--- NOTE | 2017-08-17 12:41 | Progress Note ---
Assessment and Plan Assessment and plan: Patient is a 42 yo woman with a history of htn, alcohol abuse with pancreatitis who presented to the ED with ams, syncope, dizziness, abd pains and yellow eyes. She was found to have etoh level of 0.11 and urine drug screen positive for cocaine and marijuana. CT abd/pelvis wo contrast IMPRESSION: Very large gallstone nearly filling the gallbladder visualized as described. Large hepatic cyst is visualized. Extensive coarse calcifications project throughout the pancreas consistent with chronic pancreatitis. There is mild hazy increased density in the adipose tissue inferior to the pancreas suggesting edema related to acute pancreatitis. No pseudocyst is visualized. Small amount of ascites visualized, located in the lower pelvis posteriorly on the right. The appendix is suboptimally seen. There is an appendicolith visualized in the right mid pelvis laterally as within the lumen of the appendix. No definite inflammatory change seen in the appendix however the diameter is greater than expected for normal appendix. This may represent chronic appendicitis. Abscess and free air are not visualized. 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 -Polysubstance drug abuse, pt is in denial: counseling done -Gallstone: consulted GI -Hyperbilirubinemia: surgery already consulted, -Acute on chronic anemia due to chronic liver disease: transfuse prbc -Alcohol abuse with intoxication: counseling done, treat with CIWA protocol -Thrombocytopenia: related to etoh liver disease -isolated elevated temp. pCXR reported as focal infiltrates RML and LLL, differential diagnosis would include subsegmental atelectasis. normal wbc, blood ctx negative so far. Atelectasis can cause mild temp.elevation. Will order incentive spirometry and nebs. follow cultures, empiric treat for aspiration pneumonia, poa, until blood cultures back d/w Dr. Miller, he wants her transferred to [facility]. I explained to him that pt is not a transplant candidate at this time but he states that she is known to the [facility] system, so I called [facility] transfer center at [phone], spoke with Kendra, no beds at [facility]; therefore, unable to transfer D/w Dr. Smiley, vit k given, if coags better tomorrow, will discharge===> 3: INR is not better with vit. k and Maddrey score is high, GI will start steroids. I called [facility] again, and spoke with Kendra again, [facility] has no beds currently. History Interval history: Patient was seen and examined. Follow-up on current diagnosis of abdominal pain which is still present. Overnight uneventful. Patient denies any chest pain, shortness breath, nausea/vomiting or severe headaches. Imaging, nursing note, chart, labs and old chart reviewed. Discussed with patient. Hospitalist Physical - Physical exam Narrative exam: GEN: Thin frail, NAD, AWAKE, ALERT, ORIENTATED 3 HEENT: NCAT, EOMI, PERRL, OP Clear NECK: supple, no adenopathy, no thyromegaly, no JVD CVS/HEART: RRR, NORMAL S1S2, pulses present bilaterally CHEST/LUNGS: CTA B, Symmetrical chest expansion, good air entry bilaterally GI/Abdomen: soft, nondistended, epigastric tenderness, good bowel sounds, no guarding or rebound /Bladder: no suprapubic tenderness, no CVA or paraspinal tenderness EXT/Skin: no c/c/e, no obvious rash MSK: FROM x 4 Neuro: CN 2-12 grossly intact, no new focal deficits Psych: with drawn - Constitutional Vitals: Temp Pulse Resp BP Pulse Ox 98.4 F 77 20 93/56 98 08/17/17 07:29 08/17/17 07:29 08/17/17 07:29 08/17/17 07:29 08/17/17 07:29 Results - Labs CBC & Chem 7: 08/17/17 05:42 08/17/17 05:42 Labs: Laboratory Last Values WBC 7.9 K/mm3 (4.5-11.0) 08/17/17 05:42 RBC 2.30 M/mm3 (3.65-5.03) L 08/17/17 05:42 Hgb 8.0 gm/dl (10.1-14.3) L 08/17/17 05:42 Hct 23.3 % (30.3-42.9) L 08/17/17 05:42 MCV 101 fl (79-97) H 08/17/17 05:42 MCH 35 pg (28-32) H 08/17/17 05:42 MCHC 34 % (30-34) 08/17/17 05:42 RDW 26.1 % (13.2-15.2) H 08/17/17 05:42 Plt Count 106 K/mm3 (140-440) L 08/17/17 05:42 Lymph % (Auto) Staffing And Scheduling Coordinator 08/13/17 20:27 Lymph # Staffing And Scheduling Coordinator 08/13/17 20:27 Add Manual Diff Complete 08/17/17 05:42 Total Counted 100 08/17/17 05:42 Seg Neutrophils % Staffing And Scheduling Coordinator 08/13/17 20:27 Seg Neuts % (Manual) 83.0 % (40.0-70.0) H 08/17/17 05:42 Band Neutrophils % 4.0 % 08/17/17 05:42 Lymphocytes % (Manual) 8.0 % (13.4-35.0) L 08/17/17 05:42 Reactive Lymphs % (Man) 0 % 08/17/17 05:42 Monocytes % (Manual) 3.0 % (0.0-7.3) 08/17/17 05:42 Eosinophils % (Manual) 1.0 % (0.0-4.3) 08/17/17 05:42 Basophils % (Manual) 0 % (0.0-1.8) 08/17/17 05:42 Metamyelocytes % 1.0 % 08/17/17 05:42 Myelocytes % 0 % 08/17/17 05:42 Promyelocytes % 0 % 08/17/17 05:42 Blast Cells % 0 % 08/17/17 05:42 Nucleated RBC % Not Reportable 08/17/17 05:42 Seg Neutrophils # Man 6.6 K/mm3 (1.8-7.7) 08/17/17 05:42 Band Neutrophils # 0.3 K/mm3 08/17/17 05:42 Lymphocytes # (Manual) 0.6 K/mm3 (1.2-5.4) L 08/17/17 05:42 Abs React Lymphs (Man) 0.0 K/mm3 08/17/17 05:42 Monocytes # (Manual) 0.2 K/mm3 (0.0-0.8) 08/17/17 05:42 Eosinophils # (Manual) 0.1 K/mm3 (0.0-0.4) 08/17/17 05:42 Basophils # (Manual) 0.0 K/mm3 (0.0-0.1) 08/17/17 05:42 Metamyelocytes # 0.1 K/mm3 08/17/17 05:42 Myelocytes # 0.0 K/mm3 08/17/17 05:42 Promyelocytes # 0.0 K/mm3 08/17/17 05:42 Blast Cells # 0.0 K/mm3 08/17/17 05:42 WBC Morphology Not Reportable 08/17/17 05:42 Hypersegmented Neuts Not Reportable 08/17/17 05:42 Hyposegmented Neuts Not Reportable 08/17/17 05:42 Hypogranular Neuts Not Reportable 08/17/17 05:42 Smudge Cells Not Reportable 08/17/17 05:42 Toxic Granulation Not Reportable 08/17/17 05:42 Toxic Vacuolation Not Reportable 08/17/17 05:42 Dohle Bodies Not Reportable 08/17/17 05:42 Pelger-Huet Anomaly Not Reportable 08/17/17 05:42 Roni Rods Not Reportable 08/17/17 05:42 Platelet Estimate Appears decreased 08/17/17 05:42 Clumped Platelets Not Reportable 08/17/17 05:42 Plt Clumps, EDTA Not Reportable 08/17/17 05:42 Large Platelets Not Reportable 08/17/17 05:42 Giant Platelets Not Reportable 08/17/17 05:42 Platelet Satelliting Not Reportable 08/17/17 05:42 Plt Morphology Comment Not Reportable 08/17/17 05:42 RBC Morphology Not Reportable 08/17/17 05:42 Dimorphic RBCs Not Reportable 08/17/17 05:42 Polychromasia Not Reportable 08/17/17 05:42 Hypochromasia Not Reportable 08/17/17 05:42 Poikilocytosis Not Reportable 08/17/17 05:42 Anisocytosis 3+ 08/17/17 05:42 Microcytosis Not Reportable 08/17/17 05:42 Macrocytosis Not Reportable 08/17/17 05:42 Spherocytes Not Reportable 08/17/17 05:42 Pappenheimer Bodies Not Reportable 08/17/17 05:42 Sickle Cells Not Reportable 08/17/17 05:42 Target Cells 1+ 08/17/17 05:42 Tear Drop Cells Not Reportable 08/17/17 05:42 Ovalocytes Not Reportable 08/17/17 05:42 Stomatocytes Few 08/15/17 05:34 Helmet Cells Not Reportable 08/17/17 05:42 [place] Bodies Not Reportable 08/17/17 05:42 [place] Rings Not Reportable 08/17/17 05:42 [place] Cells Not Reportable 08/17/17 05:42 Bite Cells Not Reportable 08/17/17 05:42 Crenated Cell Not Reportable 08/17/17 05:42 Elliptocytes Not Reportable 08/17/17 05:42 Acanthocytes (Spur) Not Reportable 08/17/17 05:42 Rouleaux Not Reportable 08/17/17 05:42 Hemoglobin C Crystals Not Reportable 08/17/17 05:42 Schistocytes Not Reportable 08/17/17 05:42 Malaria parasites Not Reportable 08/17/17 05:42 Madi Bodies Not Reportable 08/17/17 05:42 Hem Pathologist Commnt No 08/17/17 05:42 PT 18.4 Sec. (12.2-14.9) H 08/17/17 05:42 INR 1.44 (0.87-1.13) H 08/17/17 05:42 APTT 38.3 Sec. (24.2-36.6) H 08/14/17 00:36 Sodium 135 mmol/L (137-145) L 08/17/17 05:42 Potassium 3.6 mmol/L (3.6-5.0) 08/17/17 05:42 Chloride 102.7 mmol/L (98-107) 08/17/17 05:42 Carbon Dioxide 20 mmol/L (22-30) L 08/17/17 05:42 Anion Gap 16 mmol/L 08/17/17 05:42 BUN 7 mg/dL (7-17) 08/17/17 05:42 Creatinine 1.7 mg/dL (0.7-1.2) H 08/17/17 05:42 Estimated GFR 40 ml/min 08/17/17 05:42 BUN/Creatinine Ratio 4 % 08/17/17 05:42 Glucose 90 mg/dL (65-100) 08/17/17 05:42 POC Glucose 128 (70-105) H 08/16/17 21:13 Calcium 7.5 mg/dL (8.4-10.2) L 08/17/17 05:42 Total Bilirubin 13.40 mg/dL (0.1-1.2) H 08/17/17 05:42 Direct Bilirubin 12.5 mg/dL (0-0.2) H 08/15/17 16:03 Indirect Bilirubin 2.4 mg/dL 08/15/17 16:03 AST 75 units/L (5-40) H 08/17/17 05:42 ALT 43 units/L (7-56) 08/17/17 05:42 Alkaline Phosphatase 194 units/L (35-129) H 08/17/17 05:42 Ammonia 77.0 umol/L (25-60) H 08/13/17 21:06 Total Creatine Kinase 71 units/L (30-135) 08/14/17 07:52 CK-MB (CK-2) 2.1 ng/mL (0.0-4.0) 08/14/17 07:52 CK-MB (CK-2) Rel Index 2.9 (0-4) 08/14/17 07:52 Troponin T < 0.010 ng/mL (0.00-0.029) 08/14/17 07:52 Total Protein 5.2 g/dL (6.3-8.2) L 08/17/17 05:42 Albumin 1.9 g/dL (3.9-5) L 08/17/17 05:42 Albumin/Globulin Ratio 0.6 % 08/17/17 05:42 Amylase 32 units/L (27-131) 08/13/17 20:27 Lipase 8 units/L (13-60) L 08/13/17 20:27 Urine Color Michaela (Yellow) 08/13/17 21:24 Urine Turbidity Clear (Clear) 08/13/17 21:24 Urine pH 6.0 (5.0-7.0) 08/13/17 21:24 Ur Specific [place] 1.013 (1.003-1.030) 08/13/17 21:24 Urine Protein <15 mg/dl mg/dL (Negative) 08/13/17 21:24 Urine Glucose (UA) Neg mg/dL (Negative) 08/13/17 21:24 Urine Ketones Neg mg/dL (Negative) 08/13/17 21:24 Urine Blood Neg (Negative) 08/13/17 21:24 Urine Nitrite Neg (Negative) 08/13/17 21:24 Urine Bilirubin Mod (Negative) 08/13/17 21:24 Urine Ictotest Positive (Negative) 08/13/17 21:24 Urine Urobilinogen 4.0 mg/dL (<2.0) 08/13/17 21:24 Ur Leukocyte Esterase Neg (Negative) 08/13/17 21:24 Urine WBC (Auto) 4.0 /HPF (0.0-6.0) 08/13/17 21:24 Urine RBC (Auto) 1.0 /HPF (0.0-6.0) 08/13/17 21:24 U Epithel Cells (Auto) 7.0 /HPF (0-13.0) 08/13/17 21:24 Urine Bacteria (Auto) 2+ /HPF (Negative) 08/13/17 21:24 Amorphous Crystals Few 08/13/17 21:24 Urine Mucus Few /HPF 08/13/17 21:24 Urine Opiates Screen Presumptive negative 08/13/17 21:24 Urine Methadone Screen Presumptive negative 08/13/17 21:24 Ur Barbiturates Screen Presumptive negative 08/13/17 21:24 Ur Phencyclidine Scrn Presumptive negative 08/13/17 21:24 Ur Amphetamines Screen Presumptive negative 08/13/17 21:24 U Benzodiazepines Scrn Presumptive negative 08/13/17 21:24 Urine Cocaine Screen Presumptive positive 08/13/17 21:24 U Marijuana (THC) Screen Presumptive positive 08/13/17 21:24 Drugs of Abuse Note Disclamer 08/13/17 21:24 Plasma/Serum Alcohol 0.11 % (0-0.07) H 08/13/17 21:13 Hepatitis A IgM Ab Non-reactive (NonReactive) 08/13/17 21:30 Hep Bs Antigen Non-reactive (Negative) 08/13/17 21:30 Hep B Core IgM Ab Non-reactive (NonReactive) 08/13/17 21:30 Hepatitis C Antibody Non-reactive (NonReactive) 08/13/17 21:30 Blood Type O POSITIVE 08/13/17 21:06 Antibody Screen Negative 08/13/17 21:06 Crossmatch See Detail 08/13/17 21:06
--- NOTE | 2017-08-17 14:48 | Consultation ---
History of Present Illness Consult date: 08/17/17 Reason for consult: other - History of present illness History of present illness: Right retroauricular abscess Past History Past Medical History: other (Substance abuse; chronic pancreatitis (on CT)) Past Surgical History: Social history: smoking, alcohol abuse, other (Cocaine/MJ on UDS) Family history: other (No family hx of pancreatic disease) Medications and Allergies Allergies Allergy/AdvReac Type Severity Reaction Status Date / Time No Known Allergies Allergy Unverified 08/13/17 20:16 Home Medications Medication Instructions Recorded Confirmed Last Taken Type Lisinopril 40 mg PO DAILY 08/13/17 08/13/17 Unknown History Active Meds: Active Medications Acetaminophen (Tylenol) 650 mg PO Q4H PRN PRN Reason: Pain MILD(1-3)/Fever >100.5/CARDENAS Piperacillin Sod/Tazobactam Sod (Zosyn/Ns 4.5gm/100ml) 4.5 gm in 100 mls @ 200 mls/hr IV Q8HR COUNT INCLUDES THE [facility] Last Admin: 08/17/17 13:31 Dose: 200 mls/hr Vancomycin HCl (Vancomycin/0.45 Ns 1 Gm/250 Ml) 1 gm in 250 mls @ 167.007 mls/ hr IV Q24H COUNT INCLUDES THE [facility] Last Admin: 08/16/17 20:07 Dose: 167.007 mls/hr Levofloxacin (Levaquin) 750 mg PO Q48HR COUNT INCLUDES THE [facility] Lorazepam (Ativan) 1 mg IV Q1HR PRN PRN Reason: CIWA-Ar 8-15 Last Admin: 08/14/17 04:51 Dose: 1 mg Lorazepam (Ativan) 2 mg IV Q1HR PRN PRN Reason: CIWA-Ar 16-25 Metoclopramide HCl (Reglan) 10 mg IV Q8H PRN PRN Reason: Nausea And Vomiting Morphine Sulfate (Morphine) 2 mg IV Q4H PRN PRN Reason: Pain , Severe (7-10) Last Admin: 08/17/17 13:45 Dose: 2 mg Multivitamins/Minerals (Theragran-M Tab) 1 each PO QDAY COUNT INCLUDES THE [facility] Last Admin: 08/17/17 09:51 Dose: 1 each Pantoprazole Sodium (Protonix) 40 mg PO QDAY COUNT INCLUDES THE [facility] Last Admin: 08/17/17 09:51 Dose: 40 mg Prednisolone Sodium Phosphate (Orapred) 40 mg PO DAILY COUNT INCLUDES THE [facility] Last Admin: 08/17/17 12:00 Dose: 40 mg Sodium Chloride (Sodium Chloride Flush Syringe 10 Ml) 10 ml IV BID COUNT INCLUDES THE [facility] Last Admin: 08/16/17 23:19 Dose: 10 ml Sodium Chloride (Sodium Chloride Flush Syringe 10 Ml) 10 ml IV PRN PRN PRN Reason: LINE FLUSH Last Admin: 08/16/17 05:59 Dose: 10 ml Vancomycin HCl (Vancomycin Pharmacy To Dose) 1 each IV PKCONSULT COUNT INCLUDES THE [facility]; Protocol Review of Systems All systems: negative (none) Exam Vital Signs Temp Pulse Resp BP Pulse Ox 97.7 F 106 H 16 116/69 97 08/13/17 20:16 08/13/17 20:16 08/13/17 20:16 08/13/17 20:16 08/13/17 20:16 - Integumentary other (There is a 2 cm resolving abscess posterior to the right ear. There is no cellulitis or erythema.) Results - Labs 08/17/17 05:42 08/17/17 05:42 Abnormal lab results 08/16/17 08/17/17 08/17/17 Range/Units 21:13 05:42 05:42 RBC 2.30 L (3.65-5.03) M/mm3 Hgb 8.0 L (10.1-14.3) gm/dl Hct 23.3 L (30.3-42.9) % MCV 101 H (79-97) fl MCH 35 H (28-32) pg RDW 26.1 H (13.2-15.2) % Plt Count 106 L (140-440) K/mm3 Seg Neuts % (Manual) 83.0 H (40.0-70.0) % Lymphocytes % (Manual) 8.0 L (13.4-35.0) % Lymphocytes # (Manual) 0.6 L (1.2-5.4) K/mm3 PT 18.4 H (12.2-14.9) Sec. INR 1.44 H (0.87-1.13) Sodium (137-145) mmol/L Carbon Dioxide (22-30) mmol/L Creatinine (0.7-1.2) mg/dL POC Glucose 128 H (70-105) Calcium (8.4-10.2) mg/dL Total Bilirubin (0.1-1.2) mg/dL AST (5-40) units/L Alkaline Phosphatase (35-129) units/L Total Protein (6.3-8.2) g/dL Albumin (3.9-5) g/dL 08/17/17 Range/Units 05:42 RBC (3.65-5.03) M/mm3 Hgb (10.1-14.3) gm/dl Hct (30.3-42.9) % MCV (79-97) fl MCH (28-32) pg RDW (13.2-15.2) % Plt Count (140-440) K/mm3 Seg Neuts % (Manual) (40.0-70.0) % Lymphocytes % (Manual) (13.4-35.0) % Lymphocytes # (Manual) (1.2-5.4) K/mm3 PT (12.2-14.9) Sec. INR (0.87-1.13) Sodium 135 L (137-145) mmol/L Carbon Dioxide 20 L (22-30) mmol/L Creatinine 1.7 H (0.7-1.2) mg/dL POC Glucose (70-105) Calcium 7.5 L (8.4-10.2) mg/dL Total Bilirubin 13.40 H (0.1-1.2) mg/dL AST 75 H (5-40) units/L Alkaline Phosphatase 194 H (35-129) units/L Total Protein 5.2 L (6.3-8.2) g/dL Albumin 1.9 L (3.9-5) g/dL Diabetes panel 08/17/17 Range/Units 05:42 Sodium 135 L (137-145) mmol/L Potassium 3.6 (3.6-5.0) mmol/L Chloride 102.7 (98-107) mmol/L Carbon Dioxide 20 L (22-30) mmol/L BUN 7 (7-17) mg/dL Creatinine 1.7 H (0.7-1.2) mg/dL Glucose 90 (65-100) mg/dL Calcium 7.5 L (8.4-10.2) mg/dL AST 75 H (5-40) units/L ALT 43 (7-56) units/L Alkaline Phosphatase 194 H (35-129) units/L Total Protein 5.2 L (6.3-8.2) g/dL Albumin 1.9 L (3.9-5) g/dL Calcium panel 08/17/17 Range/Units 05:42 Calcium 7.5 L (8.4-10.2) mg/dL Albumin 1.9 L (3.9-5) g/dL Pituitary panel 08/17/17 Range/Units 05:42 Sodium 135 L (137-145) mmol/L Potassium 3.6 (3.6-5.0) mmol/L Chloride 102.7 (98-107) mmol/L Carbon Dioxide 20 L (22-30) mmol/L BUN 7 (7-17) mg/dL Creatinine 1.7 H (0.7-1.2) mg/dL Glucose 90 (65-100) mg/dL Calcium 7.5 L (8.4-10.2) mg/dL Adrenal panel 08/17/17 Range/Units 05:42 Sodium 135 L (137-145) mmol/L Potassium 3.6 (3.6-5.0) mmol/L Chloride 102.7 (98-107) mmol/L Carbon Dioxide 20 L (22-30) mmol/L BUN 7 (7-17) mg/dL Creatinine 1.7 H (0.7-1.2) mg/dL Glucose 90 (65-100) mg/dL Calcium 7.5 L (8.4-10.2) mg/dL Total Bilirubin 13.40 H (0.1-1.2) mg/dL AST 75 H (5-40) units/L ALT 43 (7-56) units/L Alkaline Phosphatase 194 H (35-129) units/L Total Protein 5.2 L (6.3-8.2) g/dL Albumin 1.9 L (3.9-5) g/dL Assessment and Plan - Patient Problems (1) Scalp abscess Current Visit: Yes Status: Acute Plan to address problem: 1) Continue antibiotics 2) I&D if refractory to antibiotics
[2017-08-17] MEDS: VANCOMYCIN/0.45 NS 1 GM/250 ML 1 GM/250 ML BAG IV SCH (22:35)
[2017-08-18 05:12] VITALS: BP 97/62
[2017-08-18] MEDS: ZOSYN/NS 4.5GM/100ML 4.5 GM/100 ML VIAL IV SCH ×2 (06:06→14:00)
[2017-08-18] MEDS: MORPHINE IV PRN (06:06)
[2017-08-18] MEDS: PROTONIX PO SCH (10:00)
[2017-08-18] MEDS: THERAGRAN-M Tab PO SCH (10:00)
[2017-08-18] MEDS ORDERED: LEVAQUIN PO SCH (10:00)
[2017-08-18] MEDS: ORAPRED PO SCH (10:00)
[2017-08-18] MEDS: SODIUM CHLORIDE FLUSH SYRINGE 10 ML IV SCH (10:00)
--- NOTE | 2017-08-18 11:09 | Gastroenterology Progress Note ---
<JERAMIE CARDENAS - Last Filed: 08/18/17 11:10> Assessment and Plan (1) Gallstone Current Visit: Yes Status: Acute Plan to address problem: - Large GS, but MRCP negative for CBD obstruction. - Given acute liver disease with chronic pancreatitis, would not recommend surgery for 6-8 weeks at least (in the absence of acute cholecystitis) to avoid complications. -surgery following with recommendations given to transfer pt to [facility], however no beds were available (2) Jaundice Current Visit: Yes Status: Acute Plan to address problem: - Jaundice with mild transaminitis and ascites (mild) on CT: likely acute alcoholic hepatitis. - Continue supportive care with MVI, protonix, CIWA protocol. - Abstinence encouraged. - Patient is not a candidate for liver transplant evaluation. - LFTs trending down - INR unresponsive to vit K challenge yesterday - discriminant function 43 and pt currently afebrile with WBC WNL- will start on steroids -pt tolerating diet-okay to advance as tolerated -continue supportive care (3) Polysubstance abuse Current Visit: Yes Status: Acute Plan to address problem: - EtOH, cocaine, MJ. - Patient on MVI and CIWA protocol. - Abstinence encouraged; patient should enroll in NA/AA. Jaundice - due to alcoholic hepatitis with probable underlying cirrhosis. Given lack of improvement, steroids were given, though benefit uncertain. Will monitor post-auricular abscess, which was drained yesterday, and is currently soft. Otherwise, okay to D/C home from GI/Liver standpoint, with outpatient follow up. Subjective Date of service: 08/18/17 Principal diagnosis: elevated bili Interval history: Clinically pt is stable with no acute distress. Tolerating diet. No active signs of bleeding. Objective - Constitutional Vitals: Temp Pulse Resp BP Pulse Ox 97.3 F L 53 L 18 97/62 100 08/18/17 07:56 08/18/17 07:56 08/18/17 07:56 08/18/17 04:34 08/18/17 07:56 General appearance: no acute distress - Labs CBC & Chem 7: 08/17/17 05:42 08/17/17 05:42 <MICHAELLE GUO - Last Filed: 08/18/17 14:53> Assessment and Plan Pt doing well. Discussed with Dr. Ruggiero. F/u with GI in 2-3 wks. Objective - Constitutional Vitals: Temp Pulse Resp BP Pulse Ox 97.3 F L 53 L 18 97/62 100 08/18/17 07:56 08/18/17 07:56 08/18/17 07:56 08/18/17 04:34 08/18/17 07:56 - Labs CBC & Chem 7: 08/17/17 05:42 08/17/17 05:42
--- NOTE | 2017-08-18 14:39 | Event Note ---
Date: 08/18/17 discharge summary on paper because [facility] EMR was down.
--- NOTE | 2017-08-18 14:46 | Discharge Summary ---
Providers - Providers Date of Admission: 08/14/17 00:53 Date of discharge: 08/18/17 Attending physician: VENKAT REY 08/14/17 01:04 Consult to Physician [CONS] Urgent Consulting Provider: JEANINE CARRION Reason For Exam: elevated bili Notified:: awaiting call back 08/14/17 11:55 Consult to Physician [CONS] Routine Consulting Provider: KAYLI LI Reason For Exam: very large gall stone Place consult to:: Notified:: answering service Phone number called:: [phone] Was contact made?: Yes If yes, spoke with:: dr. li Time called:: 13:11 08/17/17 08:31 Consult to Wound/ET Nurse [CONS] Routine Reason For Exam: wound eval 08/17/17 13:24 Consult to Physician [CONS] Routine Consulting Provider: RYLEE MORALES Reason For Exam: ABSCESS RIGHT EAR Place consult to:: DR RYLEE MORALES Notified:: YES Phone number called:: FACE TO FACE Was contact made?: Yes If yes, spoke with:: DR RYLEE MORALES Time called:: 13:20 Comment:: WILL CONSULT PATIENT Primary care physician: LORNE THOMAS Hospitalization Condition: Stable Hospital course: d/w GI, ok to d/c on tapering steroids d/w Gen. Surgery, ok d/c on keflex for right mastoid cellulitis Disposition: DC-01 TO HOME OR SELFCARE Time spent for discharge: 35 minutes Core Measure Documentation - Palliative Care Palliative Care/ Comfort Measures: Not Applicable - Core Measures Any of the following diagnoses?: none - VTE Discharge Requirements Deep Vein Thrombosis/Pulmonary Embolism Present on Admission: No Has pt received <5 days of overlap therapy or INR<2.0: No Anticoagulant overlap therapy prescribed at discharge: No Contraindication No Overlap Therapy order at DC: Not Indicated Exam - Physical Exam Narrative exam: GEN: Thin frail, NAD, AWAKE, ALERT, ORIENTATED 3 HEENT: NCAT, EOMI, PERRL, OP Clear, behind right ear soft moveable mass with surrounding redness and tenderness, poa, now draining NECK: supple, no adenopathy, no thyromegaly, no JVD CVS/HEART: RRR, NORMAL S1S2, pulses present bilaterally CHEST/LUNGS: CTA B, Symmetrical chest expansion, good air entry bilaterally GI/Abdomen: soft, nondistended, epigastric tenderness, good bowel sounds, no guarding or rebound /Bladder: no suprapubic tenderness, no CVA or paraspinal tenderness EXT/Skin: no c/c/e, no obvious rash MSK: FROM x 4 Neuro: CN 2-12 grossly intact, no new focal deficits Psych: with drawn - Constitutional Vitals: Temp Pulse Resp BP Pulse Ox 97.3 F L 53 L 18 97/62 100 08/18/17 07:56 08/18/17 07:56 08/18/17 07:56 08/18/17 04:34 08/18/17 07:56 Plan Special Instructions: smoking cessation Additional Instructions: attend Alcohol Anonymous Follow up with: LORNE THOMAS MD [Primary Care Provider] - 3-5 Days Prescriptions: Cephalexin [Keflex] 500 mg PO BID #14 tab Pantoprazole [Protonix TAB] 40 mg PO QDAY #14 tablet predniSONE [Deltasone] 1 dose PO QDAY #1 mo
--- NOTE | 2017-08-18 14:47 | Progress Note ---
Assessment and Plan Assessment and plan: Patient is a 42 yo woman with a history of htn, alcohol abuse with pancreatitis who presented to the ED with ams, syncope, dizziness, abd pains and yellow eyes. She was found to have etoh level of 0.11 and urine drug screen positive for cocaine and marijuana. CT abd/pelvis wo contrast IMPRESSION: Very large gallstone nearly filling the gallbladder visualized as described. Large hepatic cyst is visualized. Extensive coarse calcifications project throughout the pancreas consistent with chronic pancreatitis. There is mild hazy increased density in the adipose tissue inferior to the pancreas suggesting edema related to acute pancreatitis. No pseudocyst is visualized. Small amount of ascites visualized, located in the lower pelvis posteriorly on the right. The appendix is suboptimally seen. There is an appendicolith visualized in the right mid pelvis laterally as within the lumen of the appendix. No definite inflammatory change seen in the appendix however the diameter is greater than expected for normal appendix. This may represent chronic appendicitis. Abscess and free air are not visualized. 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 -Polysubstance drug abuse, pt is in denial: counseling done -Gallstone: consulted GI -Hyperbilirubinemia: surgery already consulted, -Acute on chronic anemia due to chronic liver disease: transfuse prbc -Alcohol abuse with intoxication: counseling done, treat with CIWA protocol -Thrombocytopenia: related to etoh liver disease -Right mastoid cellulitis on abx s/p mechanical drainage -isolated elevated temp. pCXR reported as focal infiltrates RML and LLL, differential diagnosis would include subsegmental atelectasis. normal wbc, blood ctx negative so far. Atelectasis can cause mild temp.elevation. Will order incentive spirometry and nebs. follow cultures, empiric treat for aspiration pneumonia, poa, until blood cultures back d/w Dr. Miller, he wants her transferred to [place]. I explained to him that pt is not a transplant candidate at this time but he states that she is known to the [facility] system, so I called [facility] transfer center at [phone], spoke with Kendra, no beds at [facility]; therefore, unable to transfer D/w Dr. Smiley, vit k given, if coags better tomorrow, will discharge===> 08/17/17: INR is not better with vit. k and Maddrey score is high, GI will start steroids. I called [facility] again, and spoke with Kendra again, [facility] has no beds currently. History Interval history: Patient was seen and examined. Follow-up on current diagnosis of abdominal pain which is still present. Overnight uneventful. Patient denies any chest pain, shortness breath, nausea/vomiting or severe headaches. Imaging, nursing note, chart, labs and old chart reviewed. Discussed with patient. Hospitalist Physical - Physical exam Narrative exam: GEN: Thin frail, NAD, AWAKE, ALERT, ORIENTATED 3 HEENT: NCAT, EOMI, PERRL, OP Clear, behind right ear soft moveable mass with surrounding redness and tenderness, poa, now draining NECK: supple, no adenopathy, no thyromegaly, no JVD CVS/HEART: RRR, NORMAL S1S2, pulses present bilaterally CHEST/LUNGS: CTA B, Symmetrical chest expansion, good air entry bilaterally GI/Abdomen: soft, nondistended, epigastric tenderness, good bowel sounds, no guarding or rebound /Bladder: no suprapubic tenderness, no CVA or paraspinal tenderness EXT/Skin: no c/c/e, no obvious rash MSK: FROM x 4 Neuro: CN 2-12 grossly intact, no new focal deficits Psych: with drawn - Constitutional Vitals: Temp Pulse Resp BP Pulse Ox 97.3 F L 53 L 18 97/62 100 08/18/17 07:56 08/18/17 07:56 08/18/17 07:56 08/18/17 04:34 08/18/17 07:56 Results - Labs CBC & Chem 7: 08/17/17 05:42 08/17/17 05:42 Labs: Laboratory Last Values WBC 7.9 K/mm3 (4.5-11.0) 08/17/17 05:42 RBC 2.30 M/mm3 (3.65-5.03) L 08/17/17 05:42 Hgb 8.0 gm/dl (10.1-14.3) L 08/17/17 05:42 Hct 23.3 % (30.3-42.9) L 08/17/17 05:42 MCV 101 fl (79-97) H 08/17/17 05:42 MCH 35 pg (28-32) H 08/17/17 05:42 MCHC 34 % (30-34) 08/17/17 05:42 RDW 26.1 % (13.2-15.2) H 08/17/17 05:42 Plt Count 106 K/mm3 (140-440) L 08/17/17 05:42 Lymph % (Auto) Compensation Business Partner 08/13/17 20:27 Lymph # Compensation Business Partner 08/13/17 20:27 Add Manual Diff Complete 08/17/17 05:42 Total Counted 100 08/17/17 05:42 Seg Neutrophils % Compensation Business Partner 08/13/17 20:27 Seg Neuts % (Manual) 83.0 % (40.0-70.0) H 08/17/17 05:42 Band Neutrophils % 4.0 % 08/17/17 05:42 Lymphocytes % (Manual) 8.0 % (13.4-35.0) L 08/17/17 05:42 Reactive Lymphs % (Man) 0 % 08/17/17 05:42 Monocytes % (Manual) 3.0 % (0.0-7.3) 08/17/17 05:42 Eosinophils % (Manual) 1.0 % (0.0-4.3) 08/17/17 05:42 Basophils % (Manual) 0 % (0.0-1.8) 08/17/17 05:42 Metamyelocytes % 1.0 % 08/17/17 05:42 Myelocytes % 0 % 08/17/17 05:42 Promyelocytes % 0 % 08/17/17 05:42 Blast Cells % 0 % 08/17/17 05:42 Nucleated RBC % Not Reportable 08/17/17 05:42 Seg Neutrophils # Man 6.6 K/mm3 (1.8-7.7) 08/17/17 05:42 Band Neutrophils # 0.3 K/mm3 08/17/17 05:42 Lymphocytes # (Manual) 0.6 K/mm3 (1.2-5.4) L 08/17/17 05:42 Abs React Lymphs (Man) 0.0 K/mm3 08/17/17 05:42 Monocytes # (Manual) 0.2 K/mm3 (0.0-0.8) 08/17/17 05:42 Eosinophils # (Manual) 0.1 K/mm3 (0.0-0.4) 08/17/17 05:42 Basophils # (Manual) 0.0 K/mm3 (0.0-0.1) 08/17/17 05:42 Metamyelocytes # 0.1 K/mm3 08/17/17 05:42 Myelocytes # 0.0 K/mm3 08/17/17 05:42 Promyelocytes # 0.0 K/mm3 08/17/17 05:42 Blast Cells # 0.0 K/mm3 08/17/17 05:42 WBC Morphology Not Reportable 08/17/17 05:42 Hypersegmented Neuts Not Reportable 08/17/17 05:42 Hyposegmented Neuts Not Reportable 08/17/17 05:42 Hypogranular Neuts Not Reportable 08/17/17 05:42 Smudge Cells Not Reportable 08/17/17 05:42 Toxic Granulation Not Reportable 08/17/17 05:42 Toxic Vacuolation Not Reportable 08/17/17 05:42 Dohle Bodies Not Reportable 08/17/17 05:42 Pelger-Huet Anomaly Not Reportable 08/17/17 05:42 Roni Rods Not Reportable 08/17/17 05:42 Platelet Estimate Appears decreased 08/17/17 05:42 Clumped Platelets Not Reportable 08/17/17 05:42 Plt Clumps, EDTA Not Reportable 08/17/17 05:42 Large Platelets Not Reportable 08/17/17 05:42 Giant Platelets Not Reportable 08/17/17 05:42 Platelet Satelliting Not Reportable 08/17/17 05:42 Plt Morphology Comment Not Reportable 08/17/17 05:42 RBC Morphology Not Reportable 08/17/17 05:42 Dimorphic RBCs Not Reportable 08/17/17 05:42 Polychromasia Not Reportable 08/17/17 05:42 Hypochromasia Not Reportable 08/17/17 05:42 Poikilocytosis Not Reportable 08/17/17 05:42 Anisocytosis 3+ 08/17/17 05:42 Microcytosis Not Reportable 08/17/17 05:42 Macrocytosis Not Reportable 08/17/17 05:42 Spherocytes Not Reportable 08/17/17 05:42 Pappenheimer Bodies Not Reportable 08/17/17 05:42 Sickle Cells Not Reportable 08/17/17 05:42 Target Cells 1+ 08/17/17 05:42 Tear Drop Cells Not Reportable 08/17/17 05:42 Ovalocytes Not Reportable 08/17/17 05:42 Stomatocytes Few 08/15/17 05:34 Helmet Cells Not Reportable 08/17/17 05:42 Woo-Clifford Bodies Not Reportable 08/17/17 05:42 [place] Rings Not Reportable 08/17/17 05:42 [place] Cells Not Reportable 08/17/17 05:42 Bite Cells Not Reportable 08/17/17 05:42 Crenated Cell Not Reportable 08/17/17 05:42 Elliptocytes Not Reportable 08/17/17 05:42 Acanthocytes (Spur) Not Reportable 08/17/17 05:42 Rouleaux Not Reportable 08/17/17 05:42 Hemoglobin C Crystals Not Reportable 08/17/17 05:42 Schistocytes Not Reportable 08/17/17 05:42 Malaria parasites Not Reportable 08/17/17 05:42 Madi Bodies Not Reportable 08/17/17 05:42 Hem Pathologist Commnt No 08/17/17 05:42 PT 18.4 Sec. (12.2-14.9) H 08/17/17 05:42 INR 1.44 (0.87-1.13) H 08/17/17 05:42 APTT 38.3 Sec. (24.2-36.6) H 08/14/17 00:36 Sodium 135 mmol/L (137-145) L 08/17/17 05:42 Potassium 3.6 mmol/L (3.6-5.0) 08/17/17 05:42 Chloride 102.7 mmol/L (98-107) 08/17/17 05:42 Carbon Dioxide 20 mmol/L (22-30) L 08/17/17 05:42 Anion Gap 16 mmol/L 08/17/17 05:42 BUN 7 mg/dL (7-17) 08/17/17 05:42 Creatinine 1.7 mg/dL (0.7-1.2) H 08/17/17 05:42 Estimated GFR 40 ml/min 08/17/17 05:42 BUN/Creatinine Ratio 4 % 08/17/17 05:42 Glucose 90 mg/dL (65-100) 08/17/17 05:42 POC Glucose 128 (70-105) H 08/16/17 21:13 Calcium 7.5 mg/dL (8.4-10.2) L 08/17/17 05:42 Total Bilirubin 13.40 mg/dL (0.1-1.2) H 08/17/17 05:42 Direct Bilirubin 12.5 mg/dL (0-0.2) H 08/15/17 16:03 Indirect Bilirubin 2.4 mg/dL 08/15/17 16:03 AST 75 units/L (5-40) H 08/17/17 05:42 ALT 43 units/L (7-56) 08/17/17 05:42 Alkaline Phosphatase 194 units/L (35-129) H 08/17/17 05:42 Ammonia 77.0 umol/L (25-60) H 08/13/17 21:06 Total Creatine Kinase 71 units/L (30-135) 08/14/17 07:52 CK-MB (CK-2) 2.1 ng/mL (0.0-4.0) 08/14/17 07:52 CK-MB (CK-2) Rel Index 2.9 (0-4) 08/14/17 07:52 Troponin T < 0.010 ng/mL (0.00-0.029) 08/14/17 07:52 Total Protein 5.2 g/dL (6.3-8.2) L 08/17/17 05:42 Albumin 1.9 g/dL (3.9-5) L 08/17/17 05:42 Albumin/Globulin Ratio 0.6 % 08/17/17 05:42 Amylase 32 units/L (27-131) 08/13/17 20:27 Lipase 8 units/L (13-60) L 08/13/17 20:27 Urine Color Michaela (Yellow) 08/13/17 21:24 Urine Turbidity Clear (Clear) 08/13/17 21:24 Urine pH 6.0 (5.0-7.0) 08/13/17 21:24 Ur Specific [place] 1.013 (1.003-1.030) 08/13/17 21:24 Urine Protein <15 mg/dl mg/dL (Negative) 08/13/17 21:24 Urine Glucose (UA) Neg mg/dL (Negative) 08/13/17 21:24 Urine Ketones Neg mg/dL (Negative) 08/13/17 21:24 Urine Blood Neg (Negative) 08/13/17 21:24 Urine Nitrite Neg (Negative) 08/13/17 21:24 Urine Bilirubin Mod (Negative) 08/13/17 21:24 Urine Ictotest Positive (Negative) 08/13/17 21:24 Urine Urobilinogen 4.0 mg/dL (<2.0) 08/13/17 21:24 Ur Leukocyte Esterase Neg (Negative) 08/13/17 21:24 Urine WBC (Auto) 4.0 /HPF (0.0-6.0) 08/13/17 21:24 Urine RBC (Auto) 1.0 /HPF (0.0-6.0) 08/13/17 21:24 U Epithel Cells (Auto) 7.0 /HPF (0-13.0) 08/13/17 21:24 Urine Bacteria (Auto) 2+ /HPF (Negative) 08/13/17 21:24 Amorphous Crystals Few 08/13/17 21:24 Urine Mucus Few /HPF 08/13/17 21:24 Urine Opiates Screen Presumptive negative 08/13/17 21:24 Urine Methadone Screen Presumptive negative 08/13/17 21:24 Ur Barbiturates Screen Presumptive negative 08/13/17 21:24 Ur Phencyclidine Scrn Presumptive negative 08/13/17 21:24 Ur Amphetamines Screen Presumptive negative 08/13/17 21:24 U Benzodiazepines Scrn Presumptive negative 08/13/17 21:24 Urine Cocaine Screen Presumptive positive 08/13/17 21:24 U Marijuana (THC) Screen Presumptive positive 08/13/17 21:24 Drugs of Abuse Note Disclamer 08/13/17 21:24 Plasma/Serum Alcohol 0.11 % (0-0.07) H 08/13/17 21:13 Hepatitis A IgM Ab Non-reactive (NonReactive) 08/13/17 21:30 Hep Bs Antigen Non-reactive (Negative) 08/13/17 21:30 Hep B Core IgM Ab Non-reactive (NonReactive) 08/13/17 21:30 Hepatitis C Antibody Non-reactive (NonReactive) 08/13/17 21:30 Blood Type O POSITIVE 08/13/17 21:06 Antibody Screen Negative 08/13/17 21:06 Crossmatch See Detail 08/13/17 21:06
[2017-08-18] MEDS ORDERED: LEVAQUIN 750MG/150ML 750 MG/150 ML BAG IV SCH (18:00)
== END 2017-08-18 17:30 | disposition home or self-care (01) | DRG 432 ==
LOC: ED 20:12 → 3A 08-14 00:53
PROVIDERS: ADMIT Internal Medicine; ATTEND Internal Medicine
PROC: 30233N1 Transfusion of Nonautologous Red Blood Cells into Peripheral Vein, Percutaneous Approach (ICD-10-PCS; principal; 2017-08-14)
DX: K70.10 Alcoholic hepatitis without ascites (principal); K85.90 Acute pancreatitis without necrosis or infection, unspecified; G92 Toxic encephalopathy; F17.200 Nicotine dependence, unspecified, uncomplicated; F10.129 Alcohol abuse with intoxication, unspecified; Y90.8 Blood alcohol level of 240 mg/100 ml or more; K72.90 Hepatic failure, unspecified without coma; F14.90 Cocaine use, unspecified, uncomplicated; F12.90 Cannabis use, unspecified, uncomplicated; K80.80 Other cholelithiasis without obstruction; D69.6 Thrombocytopenia, unspecified; E80.6 Other disorders of bilirubin metabolism; K75.9 Inflammatory liver disease, unspecified; D63.8 Anemia in other chronic diseases classified elsewhere; Z82.49 Family history of ischemic heart disease and other diseases of the circulatory system; Z71.41 Alcohol abuse counseling and surveillance of alcoholic; Z71.89 Other specified counseling
CPT/HCPCS: 36415; 71045; 74176; 74181; 80048; 80053; 80074; 80307; 80320; 81001; 82140; 82150; 82270; 82550; 82553; 82962; 83690; 84484; 85007; 85025; 85027; 85610; 85730; 86850; 86900; 86901; 86920; 87040; 93005; 93010; 96374; 96375; 99406; G0480; J1956; J2060; J2270; J2405; J2543; J2765; J3370; J3430; J7040; J7510; P9016

== ENCOUNTER 2019-05-23 12:16 | Inpatient (IN) | payer OTHER ==
[2019-05-29 08:46] VITALS: BP 145/86
== END 2019-05-29 15:16 | disposition home or self-care (01) | DRG 280 ==
LOC: ED 12:16 → 4A 16:09
PROVIDERS: ADMIT Internal Medicine; ATTEND Internal Medicine
PROC: 4A023N7 Measurement of Cardiac Sampling and Pressure, Left Heart, Percutaneous Approach (ICD-10-PCS; principal; 2019-05-24)
PROC: B2111ZZ Fluoroscopy of Multiple Coronary Arteries using Low Osmolar Contrast (ICD-10-PCS; 2019-05-24)
PROC: B2151ZZ Fluoroscopy of Left Heart using Low Osmolar Contrast (ICD-10-PCS; 2019-05-24)
DX: I21.A1 Myocardial infarction type 2 (principal); E43 Unspecified severe protein-calorie malnutrition; M62.82 Rhabdomyolysis; F11.20 Opioid dependence, uncomplicated; N30.00 Acute cystitis without hematuria; E44.1 Mild protein-calorie malnutrition; I10 Essential (primary) hypertension; F17.210 Nicotine dependence, cigarettes, uncomplicated; R21 Rash and other nonspecific skin eruption; I16.0 Hypertensive urgency; K76.89 Other specified diseases of liver; A53.9 Syphilis, unspecified; F10.20 Alcohol dependence, uncomplicated; E83.42 Hypomagnesemia; F20.9 Schizophrenia, unspecified; Z68.20 Body mass index [BMI] 20.0-20.9, adult; Z86.73 Personal history of transient ischemic attack (TIA), and cerebral infarction without residual deficits
CPT/HCPCS: 36415; 71045; 71275; 80048; 80053; 80061; 80074; 80307; 80320; 81001; 82140; 82150; 82550; 82962; 83690; 83735; 84484; 84703; 85014; 85018; 85025; 85049; 85520; 85610; 85730; 86592; 86593; 86780; 87040; 87086; 93005; 93010; 93306; 93458; 96374; 99406; G0378; C1894; G0480; J0360; J1644; J1650; J1885; J2250; J3010; J3475; J7030; J7040; Q9967